=== PATIENT | female | born 1990 | race Caucasian/White ===

== ENCOUNTER → 2021-01-11 01:32 | Outpatient (CLI) | payer BC, SELFPAY ==
[2021-01-11 19:38] LABS: SARS-CoV-2 RNA PCR Negative
== END ==
PROVIDERS: PCP Family Medicine; Visit Provider Nurse Practitioner Family
DX: R05 Cough (principal); Z20.822 Contact with and (suspected) exposure to COVID-19
CPT/HCPCS: C9803; U0003; U0005

== ENCOUNTER 2022-04-30 11:19 | Outpatient (CLI) | payer BC, SELFPAY ==
--- NOTE | 2022-04-30 11:36 | ECG_ITS ---
Measurements Intervals [place] Rate: 84 P: 26 SC: 144 QRS: -4 QRSD: 89 T: 12 QT: 364 QTc: 432 Interpretive Statements SINUS RHYTHM WITH SINUS ARRHYTHMIA LOW QRS VOLTAGE IN PRECORDIAL LEADS BORDERLINE T WAVE ABNORMALITY- INFERIOR LEADS BORDERLINE ECG NO PREVIOUS ECG AVAILABLE FOR COMPARISON Electronically Signed On 04-30-2022 12:10:09 ENVIRONMENTAL RESOURCE SPECIALIST by Silvio Castillo D.O.
[2022-04-30 11:44] LABS: Basophils Absolute Auto 0.1 K/mm3 (0.0-0.1); Basophils Percent Auto 0.4 % (0.2-1.2); Eosinophils Absolute Auto 0.2 K/mm3 (0-0.3); Eosinophils Percent Auto 1.9 % (0-4.4); Hematocrit 41.4 % (37.0-47.0); Hemoglobin 13.4 g/dL (12.0-15.0); Immature Granulocyte Absolute 0.08 K/mm3 (0.00-0.031); Immature Granulocyte Percent A 0.7 % (0-0.5); Lymphocytes Absolute Auto 2.07 K/mm3 (0.9-3.2); Lymphocytes Percent Auto 17.8 % (18.3-44.2); Mean Corpuscular HGB Conc 32.4 g/dl (32-36); Mean Corpuscular Hemoglobin 29.7 pg (26-34); Mean Corpuscular Volume 91.8 fl (80-100); Mean Platelet Volume 10.1 fl (7.4-10.4); Monocytes Absolute Auto 0.8 K/mm3 (0.1-0.6); Monocytes Percent Auto 6.6 % (2.6-8.5); Neutrophils Absolute Auto 8.4 K/mm3 (1.3-6.7); Neutrophils Percent Auto 72.6 % (45.5-73.1); Platelet Count Result 374 k/mm3 (150-375); Red Blood Count 4.51 M/mm3 (4.2-5.4); White Blood Count 11.6 K/mm3 (4.5-10.0)
[2022-04-30 11:53] LABS: Alanine Aminotransferase 53 U/L (6-35); Albumin Level 4.1 g/dL (3.5-5.1); Alkaline Phosphatase 132 U/L (38-126); Anion Gap 4 mmol/L (8-16); Aspartate Amino Transferase 33 U/L (14-36); Bilirubin,Total 0.6 mg/dL (0.2-1.3); Blood Urea Nitrogen 16 mg/dL (7-17); Calcium 8.4 mg/dL (8.4-10.2); Carbon Dioxide 28 mmol/L (22-30); Chloride 102 mmol/L (98-107); Estimated Glomerular Filt Rate > 60; Glucose 98 mg/dL (65-110); Potassium 3.4 mmol/L (3.4-5.0); Sodium 134 mmol/L (137-145)
== END 2022-04-30 11:20 | disposition home or self-care (01) ==
LOC: ANHLAB 11:21
PROVIDERS: PCP Family Medicine; Visit Provider Nurse Practitioner Family
DX: M31.30 Wegener's granulomatosis without renal involvement (principal); Z01.818 Encounter for other preprocedural examination; R94.31 Abnormal electrocardiogram [ECG] [EKG]
CPT/HCPCS: 36415; 80053; 85025; 93005

== ENCOUNTER 2022-06-05 07:52 | Outpatient (CLI) | payer BC, SELFPAY ==
--- NOTE | 2022-06-05 12:11 | WPDSIXMINUTE ---
Six Minute Walk Procedure Procedure Performed Pulmonary Stress Test (6 min walk) Six Minute Walk Six Minute Walk: This 6 minute walk test was carried out with the patient breathing ambient air. The baseline pre walk oxyhemoglobin saturation was 94%. The patient walked 365 m with no stops during testing. During the walk the oxyhemoglobin saturation remained in the range of 93% to 95%. Impression: No evidence of oxyhemoglobin desaturation on this testing.
== END 2022-06-05 07:53 | disposition home or self-care (01) ==
LOC: ANHPFT 07:54
PROVIDERS: PCP Family Medicine; Visit Provider Family Medicine
DX: J39.8 Other specified diseases of upper respiratory tract (principal)
CPT/HCPCS: 94618

== ENCOUNTER 2022-07-01 09:00 | Outpatient (RCR) | payer BC, SELFPAY ==
[2022-07-01 09:58] VITALS: BMI 42.3
[2022-07-01 10:00] VITALS: BMI 42.3
== END 2022-09-16 10:24 | disposition home or self-care (01) ==
LOC: ANHDMC 09:00
PROVIDERS: PCP Family Medicine; Visit Provider Family Medicine
DX: E66.01 Morbid (severe) obesity due to excess calories (principal); J39.8 Other specified diseases of upper respiratory tract; Z68.41 Body mass index [BMI] 40.0-44.9, adult; Z71.3 Dietary counseling and surveillance
CPT/HCPCS: 97802

== ENCOUNTER 2024-01-04 12:29 | Outpatient (CLI) | payer BC, SELFPAY ==
--- NOTE | ~2024-01-04 | CT_ITS ---
EXAMINATION: CTA chest PE protocol DATE: 01/04/2024 13:19 INDICATION: Shortness of breath TECHNIQUE: Computed tomography (CT) pulmonary angiogram of the chest was performed with 100 mL Omnipa que-350 intravenous contrast. Additional 3D reconstructions utilizing coronal maximum intensity proje ction (MIP) were performed. Automated exposure control and iterative reconstruction technique were em ployed. The dose-length product was 873.64 mGy-cm. COMPARISON: 10/18/2027 FINDINGS: No pulmonary embolism. Multiple scattered bands of linear discoid atelectasis throughout both lungs w ith lower lung predominance. There are also widely scattered patchy groundglass opacities throughout both lungs also with lower lung predominance. No smooth septal line thickening to suggest pulmonary e robert. 5 mm pleural-based nodule in the right lower lobe. No pleural effusion or pneumothorax. Heart s ize is normal. No pericardial effusion. Thoracic aorta is normal in caliber with no dissection. No pa thologically enlarged thoracic lymphadenopathy. Small sliding-type hiatal hernia. Chronic appearing m ild T11 and T12 compression fractures with Schmorl's nodes along portions of the superior endplates o f both vertebral bodies as well as along the superior endplate of T9 all of which is new since 018. IMPRESSION: 1. No pulmonary embolism. 2. Patchy groundglass opacities throughout both lungs. Differential would include pneumonia, atelecta sis, pulmonary edema versus less likely eosinophilic pneumonia, hypersensitivity pneumonitis or desqu amative interstitial pneumonia (DIP) pattern chronic interstitial lung disease. Reviewed, dictated and finalized at location B. IMPRESSION: 1. No pulmonary embolism. 2. Patchy groundglass opacities throughout both lungs. Differential would inclu de pneumonia, atelectasis, pulmonary edema versus less likely eosinophilic pneu monia, hypersensitivity pneumonitis or desquamative interstitial pneumonia (DIP ) pattern chronic interstitial lung disease.
--- NOTE | 2024-01-04 13:22 | ECG_ITS ---
Test Date: 2024-01-04 13:36:09 Measurements Intervals [place] Rate: P: [place]: QRS: QRSD: T: QT: QTc: Interpretive Statements SINUS TACHYCARDIA LOW VOLTAGE IN PRECORDIAL LEADS DELAYED PRECORDIAL R/S TRANSITION BASELINE ARTIFACT- III, AVF ABNORMAL ECG Electronically Signed On 01-04-2024 14:53:36 CDT by Silvio Castillo D.O.
== END 2024-01-04 12:30 | disposition home or self-care (01) ==
PROVIDERS: PCP Family Medicine; Visit Provider Family Medicine
DX: R94.31 Abnormal electrocardiogram [ECG] [EKG] (principal); R00.0 Tachycardia, unspecified
CPT/HCPCS: 71275; 93005; Q9967

== ENCOUNTER 2024-09-07 13:04 | Outpatient (CLI) | payer OTHER, SELFPAY ==
--- OUTSIDE RECORDS SUMMARY | 2024-09-07 13:15 | XMS_ITS | Clinical Summary ---
Author Organization [facility] Address [address] [place] [address] Phone Care Team Providers Care Product Lead Name Role Phone David Shea MD Primary Care Provider [phone] Allergies Active Allergy Reactions Criticality Noted Date Comments Nifedipine Hives,Rash Medium 01/23/2018 Prochlorperazine Other (See Comments),Palpitations Medium 12/12/2017 tachycardia Very anxious, felt like I was going to pass out-per patient. Very anxious, felt tlike I was going to pass out-per patient. Prochlorperazine Propensity to adverse reactions to drug Active Other (See Comments) 2018-01-06 00:00:00 tachycardia Medications escitalopram oxalate (LEXAPRO) 10 mg tablet Take 10 mg by mouth daily. Active calcium citrate-vitamin D3 (CITRACAL WITH VIT D) 200 mg calcium -250 unit Tablet Take by mouth. Active cholecalciferol , Vitamin D3, 2,000 unit Tablet Take 4,000 Units by mouth. Active apixaban (ELIQUIS ORAL) Take 5 mg by mouth. Active omeprazole (PriLOSEC) 20 mg Capsule, Delayed Release(E.C.) Take 20 mg by mouth 2 times daily. Patient not sure if this is her dose Active ferrous sulfate 325 mg (65 mg iron) tablet Take 325 mg by mouth daily. Active vitamin B complex (B COMPLEX 1 ORAL) 12/26/2022 Act nash buPROPion HCL (WELLBUTRIN SR) 150 mg Sustained Release 12 hour tablet Take 150 mg by mouth daily. Active ascorbic acid, vitamin C, (VITAMIN C) 250 mg tablet Take 250 mg by mouth daily. Active escitalopram oxalate (LEXAPRO) 10 mg tablet Take 1 Tablet (10 mg) by mouth daily. 90 Tablet 3 05/12/2024 9:04 AM MOBILE THERAPIST 05/26/2023 Active ALPRAZolam (XANAX) 0.25 mg tablet Take 1 Tablet (0.25 mg) by mouth 3 times daily as needed for anxiety 60 Tablet 5 05/27/2023 2:55 PM MOBILE THERAPIST 05/26/2023 Active oxyCODONE (ROXICODONE) 5 mg tablet Take 1 (one) tablet by mouth every 6 hours as needed for Pain 4 Tablet 06/03/2023 9:11 AM MOBILE THERAPIST 06/02/2023 Active azithromycin (ZITHROMAX) 250 mg tablet TAKE 2 TABLETS BY MOUTH ON DAY 1, THEN TAKE 1 TABLET BY MOUTH DAILY ON DAYS 2-5. 6 Tablet 12/11/2023 5:39 PM CDT 12/11/2023 Active omeprazole (PriLOSEC) 40 mg Capsule, Delayed Release(E.C.) Take 1 Capsule (40 mg) by mouth daily. 90 Capsule 3 05/31/2024 3:36 PM MOBILE THERAPIST 05/23/2024 Active buPROPion HCL (WELLBUTRIN XL) 150 mg Extended Release 24 hour tablet Take 1 Tablet (150 mg) by mouth daily in the morning. Take with Lexapro. 30 Tablet 11 07/20/2024 2:51 PM CDT 07/20/2024 Active ALPRAZolam (XANAX) 0.25 mg tablet Take 1 Tablet (0.25 mg) by mouth 3 times daily as needed for anxiety. 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 Hypogammaglobulinemia 03/13/2024 Encounter for preconception consultation 023 Encounters Date Type Department Care Team Description 09/01/2024 9:59 AM CDT - 09/01/2024 11:59 PM CDT Hospital Encounter [facility] [address]nd Fl [address] [place] [address] Anam Salmon MD Infusion Chair 8, 2nd Floor [facility] Discharge Disposition: Home or Self Care 07/27/2024 10:00 AM CDT - 07/27/2024 11:59 PM CDT Hospital Encounter [facility] 2nd Fl [address] [place] [address] Anam Salmon MD Infusion Chair 9, 2nd Floor [facility] Discharge Disposition: Home or Self Care 07/26/2024 External Device Data STL ABSTRACTION Provider, Abstract 07/26/2024 External Device Data STL ABSTRACTION Provider, Abstract 07/05/2024 Orders Only [facility] [address] [place] [address] David Shea MD 07/02/2024 External Device Data STL ABSTRACTION Provider, Abstract 06/15/2024 External Device Data STL ABSTRACTION Provider, Abstract 06/14/2024 External Device Data STL ABSTRACTION Provider, Abstract 06/14/2024 Orders Only [facility] 2nd Fl [address] [place] [address] Anam Salmon MD ANCA-associated vasculitis (CMS/HCC) (Primary Dx) from Last 3 Months Immunizations Immunization Administration Dates Next Due Influenza Seasonal Unspecified Formulation IM Social History Tobacco Use Types Packs/Day Years Used Date Smoking Tobacco: Never Smokeless Tobacco: Never Tobacco Cessation:Counseling Given: Not Answered Alcohol Use Standard Drinks/Week Comments Never 0 (1 standard drink = 0.6 oz pur e alcohol) Feeling Safe Answer Date Recorded Are you in a relationship wi th someone who hurts you emotionally and/or physically? No 07/27/2024 Comments No Sex and Gender Information Value Date Recorded Sex Assigned at Not on file Legal Sex Female 7:24 PM CDT Gender Identity Not on file Sexual Orientation Not on file Last Filed Vital Signs Vital Sign Reading Time Taken Comments Blood Pressure 123/72 09/01/2024 10:02 AM CDT Pulse 92 09/01/2024 10:02 AM CDT Temperature 36.2 C (97.1 F) 07/27/2024 10:10 AM CDT Respiratory Rate 18 07/27/2024 10:1 0 AM CDT Oxygen Saturation 96% 02/12/2024 7:30 PM CDT Inhaled Oxygen Concentration - - Weight 121.9 kg (268 lb 12.8 oz) 2024 10:01 AM CDT Height 167.6 cm (5' 6 ) 02/12/2024 2:16 PM CDT Body Mass Index 43.39 02/12/2024 2:16 PM CDT Plan of Treatment Upcoming Encounters Date Type Department Care Team (Late st Contact Info) Description 10/10/2024 8:15 AM CDT Appointment [facility] [address] [place] [address] Casi Hughes MD [address] [facility] [address] [place] [address] Anam Salmon MD [address], [place] [address] Infusion Chair 11, 2nd Floor [place] 10/19/2024 9:00 AM CDT Appointment [facility] 2nd Fl [address] [place] [address] Infusion Chair 9, 2nd Floor [place] Health Maintenance Due Date Last Done Comments Pre-Diabetes and Diabetes Screening 1990 HEPATITIS B VACCINES (1 of 3 - 19+ 3-dose series) 10/15/2007 HPV/Cotest (21-29) 05/25/2022 05/25/2017 HPV/Cotest (30-65) 05/25/2022 05/25/2017 INFLUENZA VACCINE (#1) 2023 , 02/24/2020, 03/10/2019, Additional history exists DTAP/TDAP/TD VACCINES (2 - Td or Tdap) 12/04/2023 12/03/2013 COVID-19 Vaccine (4 - 2023- season) 2023 06/06/2021, 08/29/2020, 08/08/2020 CERVICAL CANCER SCREENING 01/29/2026 PAP SMEAR 01/29/2026 01/29/2023, 04/27, 05/25/2017, Additional history exists HPV VACCINES Aged Out No longer eligi ble based on patient's age to complete this topic Insurance RX [employer] Member Subscriber Plan / Payer (Ef fective 2024-Present) Name:Myrna Hancock Relation to Subscriber:Self Name:Myrna Hancock Subscriber ID:Not on file Payer ID:Not on file Type:Not on file Address: [address] [employer] Advance Directives For more information, please contact: [phone] * Full Code (Latest Code Status on File) Date Activated Date Inactivated Comments 04/18/2020 7:14 AM 04/18/2020 1:32 PM * Full Code Date Activated Date Inactivated Comments 05/20/2019 3:46 PM 05/20/2019 11:40 PM * Full Code Date Activated Date Inactivated Comments 05/20/2019 1:58 PM 05/20/2019 3:46 PM * Full Code Date Activated Date Inactivated Comments 02/21/2019 2:30 PM 02/21/2019 7:43 PM * Full Code Date Activated Date Inactivated Comments 02/21/2019 10:47 AM 02/21/2019 2:30 PM Care Teams Product Lead Relationship Specialty Start Date End Date David Shea MD [address] [place] [address] PCP - General Family Practice 01/06/18
--- OUTSIDE RECORDS SUMMARY | 2024-09-07 13:16 | XMS_ITS | Encounter Summary ---
Author Organization [facility] Address [address] [place] [address] Care Team Providers Care Conche Loader And Unloader Name Role Phone David Shea MD Primary Care Provider [phone] Samara Whitfield RN Unavailable [phone] Rigo Aden MD Unavailable Henna España MD Unavailable [phone] Encounter Details Date Type Department Care Team (Late st Contact Info) Description 04/14/2019 Ophth Exam [facility] [address] [place] [address] Jamari Velasquez MD [address] [place], [place] [id number] Social History Tobacco Use Types Packs/Day Years Used Date Smoking Tobacco: Never Smokeless Tobacco: Never Alcohol Use Standard Drinks/Week Comments No 0 (1 standard drink = 0.6 oz pur e alcohol) once or twice a year Comments No Sex and Gender Information Value Date Recorded Sex Assigned at Not on file Legal Sex Female 5:19 PM SOFTWARE QUALITY ASSURANCE ENGINEER Gender Identity Not on file Sexual Orientation Not on file documented as of this encounter Functional Status * Is person deaf or have serious hearing difficulty? Answer Date of Assessment Author No 10/01/2018 12:15 PM CDT Noemi Stern RN * Is person blind or have serious difficulty seeing? Answer Date of Assessment Author No 10/01/2018 12:15 PM CDT Noemi Stern RN * Does person have serious difficulty walking/climbing stairs? Answer Date of Assessment Author No 10/01/2018 12:15 PM CDT Noemi Stern RN * Does person have difficulty dressing/bathing? Answer Date of Assessment Author No 10/01/2018 12:15 PM CDT Noemi Stern RN * Does person have difficulty doing errands alone? Answer Date of Assessment Author No 10/01/2018 12:15 PM CDT Noemi Stern RN documented as of this encounter Mental Status * Does person have difficulty concentrating/remembering/making decisions? Answer Entry Date Author No 10/01/2018 12:15 PM CDT Noemi Stern RN documented in this encounter Plan of Treatment Upcoming Encounters Date Type Department Care Team (Late st Contact Info) Description 09/13/2024 10:40 AM CDT Office Visit [facility] - Rheumatology [address] [place] [phone] Anam Salmon MD [address] [place] [address] [place] [address] 01/02/2025 12:00 PM CDT Appointment [facility] [address] [place] [address] 01/02/2025 3:30 PM CDT Office Visit [facility] - Pulmonology [address] [place] [phone] Lonnie Reveles MD [address] [place] [address] documented as of this encounter Visit Diagnoses Not on filedocumented in this encounter Additional Health Concerns Infection Onset Date Last Indicated Resolved Time COVID-19 Under Investigation 09/13/2019 09/13/2019 09/13/2019 10:29 PM CDT COVID-19 Under Investigation 06/10/2022 06/10/2022 06/10/2022 9:19 PM SOFTWARE QUALITY ASSURANCE ENGINEER COVID-19 Confirmed 06/10/2022 06/10/2022 02/25/202 3 4:35 AM SOFTWARE QUALITY ASSURANCE ENGINEER COVID-19 Under Investigation 12/11/2023 12/11/2023 12/11/2023 11:00 PM CDT COVID-19 Confirmed 12/11/2023 12/11/2023 4 4:33 AM CDT documented as of this encounter Care Teams Conche Loader And Unloader Relationship Specialty Start Date End Date David Shea MD PCP - General 04/03/15 Samara Whitfield, RN Continuity Tester 05/07/18 Rigo Aden MD [facility] [place] [address] Rheumatology 10/25/18 Henna España MD [address] [place] [address] [place] [id number] Ophthalmology 03/12/22 documented as of this encounter
--- OUTSIDE RECORDS SUMMARY | 2024-09-07 13:16 | XMS_ITS | Clinical Summary ---
Author Organization [facility] Address [address] [place] [address] Care Team Providers Care Waterworks Operator Name Role Phone David Shea MD Primary Care Provider [phone] Samara Whitfield RN Unavailable Rigo Aden MD Unavailable Henna España MD Unavailable Source Comments [facility],non-owned Affiliates and Associated Physician Practices is amultiple site organization consisting of ambulatory clinics and hospital sitesin [place], [place], [place] and [place]. This disclosure is being madepursuant to the Care Everywhere program and may not contain all information available regarding this patient. Last updated 18.[facility] Allergies Active Allergy Reactions Criticality Noted Date Comments Prochlorperazine Psychiatric Medium 12/12/2017 Very anxious, felt like I was going to pass out-per patient. Nifedipine Rash Medium 01/23/2018 Medications * Be aware that medications may not be up to date on this document. Alwaysverify current medications with the patient. Calcium Carb-Cholecalci ferol (CALCIUM 500 + D PO) 500 mg Active ALPRAZolam (Xanax) 0.25 MG tablet Take 1 (one) tablet by mouth every 8 hours as needed for Insomnia 12/24/2023 Active buPROPion XL 24hr (Wellbutrin-XL) 150 MG tablet TAKE ONE TABLET BY MOUTH ONCE DAILY 30 tablet 12/16/2023 12/16/19 25 Active escitalopram (Lexapro) 10 MG tablet TAKE ONE TABLET BY MOUTH ONCE DAILY 30 tablet 12/16/2023 12/16/19 25 Active magnesium glycinate tablet Take 5 (five) tablets by mouth once daily 03/06/2023 Active MV-Min-Fe Fum-FA-DHA (/FOLIC ACID+DHA PO) Take 1 tablet by mouth once daily 08/26/2023 Active Cyanocobalamin (B-12) 1000 MCG Take 1 tablet by mouth once daily Active Cholecalciferol (Vitamin D3) 125 MCG (5000 UT) Take 1 tablet by mouth once daily Active omeprazole (PriLOSEC) 40 MG capsule Take 1 (one) capsule by mouth once daily 90 capsule 3 05/23/2024 Active Active Problems Problem Noted Date Diagnosed Date Acute hypoxic respiratory failure 12/13/2023 COVID 12/12/2023 Dacryocystitis of left lacrimal sac 03/15/2022 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 05/15/2021 Granulomatosis with polyangiitis 05/09/2018 Stridor 05/06/2018 SOB (shortness of breath) 05/06/2018 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 Foot pain, right 01/31/2018 Shortness of breath 01/13/2018 Acute septic pulmonary embolism with acute cor p ulmonale 01/13/2018 Acute recurrent maxillary sinusitis 12/09/2017 Immunosuppression 11/27/2017 Pulmonary nodules/lesions, multiple 11/27/2017 Vasculitis 11/17/2017 Encounter for therapeutic drug level monitoring 07/11/2015 Scleritis of left eye 05/31/2015 Arteritis 05/31/2015 Hoarseness Pulmonary infiltrate Consolidation of right upper lobe Right hand pain Right foot pain 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 Leucopenia Resolved Problems Problem Noted Date Diagnosed Date Resolved Date Necrotic toes 03/27/2018 04/12/2019 History of pulmonary embolism 03/15/2018 04/12/2019 Encounter for central line placement 01/16/2018 04/12/2019 Pneumonia due to infectious organism 11/27/2017 04/12/2019 H/O: pneumonia 11/24/2017 04/12/2019 Postcoital and contact bleeding 06/03/2017 04/12/2019 Sepsis 04/12/2019 Encounters Date Type Department Care Team Description 08/12/2024 Telephone [facility] - Rheumatology [address] [place] [phone] Anam Salmon MD LABS ONLY 06/27/2024 4:00 PM 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 Office Visit [facility] - Pulmonology [address] [place] [phone] Lonnie Reveles MD Granulomatosis with polyangiitis, unspecified whether renal involvement (Primary Dx); Orbital granulomatosis with polyangiitis (GPA); Tracheal stenosis; Dyspnea, unspecified type; Abnormal CT of the chest 06/27/2024 Travel 06/14/2024 10:29 AM 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 - 06/14/2024 11:59 PM 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 Hospital Encounter [facility] OP DRAW STATION [address] [place] [address] Discharge Disposition: Home or Self Care 06/14/2024 10:00 AM 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 Office Visit [facility] - Rheumatology [address] [place] [phone] Anam Salmon MD ANCA-associated vasculitis (Primary Dx); History of DVT (deep vein thrombosis); Therapeutic drug monitoring; Immunosuppression due to drug therapy ([facility]) ; Long-term current use of rituximab; Medication exposure during first trimester of ; Hypogammaglobulinemia 06/14/2024 Travel from Last 3 Months Immunizations Immunization Administration Dates Next Due INFLUENZA VACCINE, TRIV. (AF LURIA, FLUZONE TRIVALENT; 6MO+) (IIV3) 02/23/2019 Covid ClassifEye primary monoval ent 12+ yr 0.3mL Purple cap 06/06/2021,08/29/2020,08/08/2020 FLU VACCINE TRI IIV3 SPLIT PF IM (FLUVIRIN) 12/27 INFLUENZA VACCINE 01/19/2023,01/31/2019 INFLUENZA VACCINE, CELL CULT URE, QUADR. (FLUCELVAX QUADRIVALENT; 6MO+) (CCIIV4) 03/10/2019 INFLUENZA VACCINE, QUADR. (F LUZONE; FLULAVAL; FLUARIX; AFLURIA QUADRIVALENT; 6MO+), 0.5 ML (IIV4) 01/19/2023,02/24/2020 Pneumococcal Pcv13 Conj 03/31/2019 TDAP (7yrs+) 12/03/2013 Family History Medical History Relation Name Comments None Known Brother Lupus Cousin None Known Father Cancer - Breast Maternal Aunt Cancer - Breast Maternal Grandmother None Known Mother Cancer - Lung Paternal Grandfather Relation Name Status Comments Brother Alive Cousin Alive Father Alive Maternal Aunt Maternal Grandmother Mother Alive Paternal Grandfather Social History Tobacco Use Types Packs/Day Years Used Date Smoking Tobacco: Never Smokeless Tobacco: Never Tobacco Cessation:Counseling Given: Not Answered Alcohol Use Standard Drinks/Week Comments No 0 (1 standard drink = 0.6 oz pur e alcohol) AUDIT-C Answer Date Recorded Q1: How often do you have a drink containing alcohol? Never 12/11/2023 Q2: How many drinks containi ng alcohol do you have on a typical day when you are drinking? Patient does not drink Q3: How often do you have si x or more drinks on one occasion? Never 12/11/2023 Overall Financial Resource Strain (CARDIA) Answe r Date Recorded How hard is it for you to pa y for the very basics like food, housing, medical care, and heating? Not hard at all 12/12/2023 PHQ-2 Answer Date Recorded Patient Health Questionnaire-2 Score 0 06/14/2024 [facility] - Occupational Stress Questionnaire Answer Date Recorded Do you feel stress - tense, restless, nervous, or anxious, or unable to sleep at night because your mind is troubled all the time - these days? Rather much 12/12/2023 Hunger Vital Sign Answer Date Recorded Within the past 12 months, y ou worried that your food would run out before you got the money to buy more. Never true 12/12/19 24 Within the past 12 months, t he food you bought just didn't last and you didn't have money to get more. Never true 12/12/2023 PRAPARE - Transportation Answer Date Re corded In the past 12 months, has l ack of transportation kept you from medical appointments or from getting medications? No 11/25 In the past 12 months, has l ack of transportation kept you from meetings, work, or from getting things needed for daily living? No 12/12/2023 Housing Stability Vital Sign Answer Stanley e Recorded In the last 12 months, was t here a time when you were not able to pay the mortgage or rent on time? No 12/12/2023 In the last 12 months, how many places have you lived? 1 12/12/2023 In the last 12 months, was t here a time when you did not have a steady place to sleep or slept in a longterm (including now)? No 12/12/2023 Comments No Sex and Gender Information Value Date Recorded Sex Assigned at Not on file Legal Sex Female 5:19 PM 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 Gender Identity Not on file Sexual Orientation Not on file Last Filed Vital Signs Vital Sign Reading Time Taken Comments Blood Pressure 109/78 06/27/2024 3:43 PM 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 Pulse 102 06/27/2024 3:43 PM 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 Temperature 36.8 C (98.2 F) 06/14/2024 10:07 AM 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 Respiratory Rate 17 06/27/2024 3:43 PM 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 Oxygen Saturation 98% 06/27/2024 3:43 PM 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 Inhaled Oxygen Concentration 21% 12/12/2023 4 :00 AM CDT Weight 119.2 kg (262 lb 12.8 oz) 06/27/2024 3:43 PM 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 Height 167.6 cm (5' 6 ) 06/27/2024 3:43 PM 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 Body Mass Index 42.42 06/27/2024 3:43 PM 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 Plan of Treatment Upcoming Encounters Date Type Department Care Team (Late st Contact Info) Description 09/13/2024 10:40 AM CDT Office Visit [facility] - Rheumatology [address] [place] [address], [place] [address] Anam Salmon MD [address] [place] [address] [place] [address] 01/02/2025 12:00 PM CDT Appointment [facility] PFT [address] [place] [phone] 01/02/2025 3:30 PM CDT Office Visit [facility] - Pulmonology [address] [place], [place] [address], [place] [address] Lonnie Reveles MD [address] [place] [address] Health Maintenance Due Date Last Done Comments HEPATITIS B VACCINE (1 of 3 - 19+ 3-dose series) 10/15/2007 ZOSTER VACCINE (1 of 2) 10/15/2007 PNEUMOCOCCAL VACCINE (2 of 2 - PPSV23) 05/26/2019 03/31/2019 DTAP/TDAP/TD VACCINES (2 - Td or Tdap) 12/04/2023 12/03/2013 COVID-19 VACCINE ( season) 2023 06/06/2021, 06/06/2021, 08/29/2020, Additional history exists INFLUENZA VACCINE (Season Ended) 2024 01/19/2023, 01/19/2023, 02/24/2020, Additional history exists PAP SMEAR 01/29/2026 01/29/2023 HIV SCREENING Completed 12/09/2017 HEPATITIS C SCREENING Completed 01/19/2023 , 04/04/2020, 12/09/2017, Additional history exists DEPRESSION SCREENING Completed 06/14/2024, 05/04/2023, 06/02/2022, Additional history exists HIB VACCINE Aged Out No longer eligi ble based on patient's age to complete this topic HPV VACCINE Aged Out No longer eligi ble based on patient's age to complete this topic MENINGOCOCCAL (Group B) VACCINE SHARED DECISION-MAKING Aged Out No longer eligible based on patient's age to complete this topic MENINGOCOCCAL GROUPS A/C/Y/W VACCINE Aged Out No longer eligible based on patient's age to complete this topic Medical Devices Implanted Type Area Line Construction Superintendent Device Identifier Shelf Expiration Date Model / Serial / Lot Set Intbt .016in .025in Crwfrd Nose - [id number] Implanted:Qty: 1 on 05/05/2022 by Henna España MD at [facility] [employer] 12/25/2025 [id number] / [id number] / [id number] Procedures Procedure Name Priority Date/Time Associated Diagnosis Comments PROTEIN CREATININE RATIO URINE RANDOM PNL Routine 06/14/2024 11:55 AM 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 ANCA-associated vasculitis URINALYSIS W/MICROSCOPIC REFLEX TO CULTURE Routine 06/14/2024 11:55 AM 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 ANCA-associated vasculitis FLOW CYTOMETRY RITUXAN BLOOD Routine 06/14/2024 11:23 AM 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 ANCA-associated vasculitis COMPREHENSIVE METABOLIC PANEL Routine 06/14/2024 11:23 AM 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 ANCA-associated vasculitis CBC W AUTO DIFFERENTIAL Routine 06/14/19 11:23 AM 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 ANCA-associated vasculitis NEUTROPHIL CYTOPLASMIC ANTIBODY Routine 06/14/2024 11:23 AM 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 ANCA-associated vasculitis MPO/KS 3 AUTOANTIBODIES PANEL Routine 06/14/2024 11:23 AM 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 ANCA-associated vasculitis IMMUNOGLOBULINS IGG/IGM/IGA PANEL Routine 06/14/2024 11:23 AM 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 ANCA-associated vasculitis HEPATITIS C AB SCREEN RFLX NAAT QUANT Routine 01/19/2023 10:43 AM CDT Need for hepatitis C screening test HIV-1 HIV-2 ANTIGEN/ANTIBODY STAT 12/09/2017 4:51 PM CDT from Last 3 Months or Most Recently Relevant to Health Maintenance Results * (ABNORMAL) URINALYSIS W/MICROSCOPIC REFLEX TO CULTURE (06/14/2024 11:55 AM 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) Color UA Yellow Straw, Yellow 06/14/2024 12:19 PM 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 [facility] Clarity UA Slt Cloudy(A) Clear 06/14/2024 12:19 PM [facility] Specific [place] UA 1.023 1.005 - 1.030 06/14/2024 12:19 PM [facility] pH UA 6.0 5.0 - 8.0 pH 06/14/2024 12:19 PM [facility] Protein UA Negative Negative 06/14/2024 12:19 PM [facility] Glucose UA Negative Negative 06/14/2024 12:19 PM [facility] Ketone UA Negative Negative 06/14/2024 12:19 PM [facility] Bilirubin UA Negative Negative 06/14/2024 12:19 PM [facility] Blood UA Negative Negative 06/14/2024 12:19 PM [facility] Nitrite UA Negative Negative 06/14/2024 12:19 PM [facility] Leukocyte Esterase Negative Negative 06/14/2024 12:19 PM [facility] Urobilinogen UA Negative Negative mg/dL 06/14/2024 12:19 PM [facility] RBC UA 0-2 None Seen, 0-2, 3-5 /HPF 06/14/2024 12:19 PM [facility] WBC UA 0-5 None Seen, 0-5 /HPF 06/14/2024 12:19 PM [facility] Squamous Epithelial Cells UA 3-5 None Seen, 0-2, 3-5 /HPF 06/14/2024 12:19 PM [facility] Mucus UA 1+ /LPF 06/14/2024 12:19 PM [facility] Urine URINE SPECIMEN OBTAINED BY CLEAN CATCH PROCEDURE / Unknown Collection / Unknown 06/14/2024 11:55 AM [facility] 06/14/2024 12:12 PM [facility] - 06/14/2024 12:19 PM [facility] Culture Not Indicated Anam Salmon MD LAB - URINALYSIS ORDERABLES F inal Result Performing Organization Address City/State/[facility] Co de Phone Number [facility] [address] [place] [phone], [place] [phone] * PROTEIN CREATININE RATIO URINE RANDOM PNL (06/14/2024 11:55 AM 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) Protein Urine 14 Not Established mg/dL 06/14/2024 12:51 PM [facility] Creatinine Urine 168.67 Not Established mg/dL 06/14/2024 12:51 PM [facility] Protein/Creati nine Ratio Urine 0.08 <0.10 06/14/2024 12:51 PM [facility] Urine URINE SPECIMEN OBTAINED BY CLEAN CATCH PROCEDURE / Unknown Collection / Unknown 06/14/2024 11:55 AM 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 06/14/2024 12:12 PM 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 Anam Salmon MD LAB - URINE CHEMISTRY ORDERAB LES Final Result [facility] [address] [place] [address], [place] [phone] * FLOW CYTOMETRY RITUXAN BLOOD (06/14/2024 11:23 AM 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) Reason for test ANCA-associated vasculitis (HCC) 447.8 06/14/2024 3:43 PM [facility] Client Specimen ID # [id number] 06/14/2024 3:43 PM [facility] Number of Markers 7 06/14/2024 3:43 PM [facility] Flow Cytometry Results Differential Result Comment WBC Count /uL 11,400 % Lymphocytes 18 Lymphocyte Count u/L 2,052 Cell Region A: Lymphocytes Surface Marker Results % Absolute Count (cells/uL) CD3 95 1,949 CD3+CD4+ 56 1,149 CD3+CD8+ 36 739 CD4:CD8 Ratio 1.56 CD19 0 0 CD20 0 0 CD45 100 2,052 CD56 4 82 06/14/2024 3:43 PM [facility] Flow Cytometry Interpretation Testing is technical only and does not require an interpretation of results. 06/14/2024 3:43 PM [facility] Reference Range Adult Normal Reference Range Adult (> 18 years) CD3 54-84 % CD4 33-63 % CD8 12-39 % CD19 5-19 % CD56 6-26 % CD4+CD45RA+ 30-50 % CD4+CD45RO+ 17-42 % CD19+CD27+ 7-48 % CD19+CD27+IgD+ 7-29 % CD19+CD27+IgD- 3-23 % CD19+BJ91-FeT+ 29-93 % % 06/14/2024 3:43 PM [facility] Disclaimer Test performed at [facility], [address] [place], [place], [address]. This test was developed and its performance characteristics determined by the Flow Cytometry Laboratory. It has not been cleared by the [place] Food and Drug Administration (FDA). The FDA has determined that such clearance or approval is not necessary. This test is used for clinical purposes. It should not be regarded as investigational or for research. This laboratory is regulated under the Clinical Laboratory Improvement Amendments of 1998 (CLIA) as a qualified to perform high complexity clinical testing. By law [place], CD4 lymphocyte counts on patients with HIV infection must be reported by the physician to the [facility] authority. 06/14/2024 3:43 PM 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 [facility] Embedded Images 3:43 PM 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 [facility] Blood BLOOD SPECIMEN / Unknown Lab Venipuncture / Unknown 06/14/2024 11:23 AM 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 06/14/2024 12:14 PM 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 Anam Salmon MD LAB - PATHOLOGY/CYTOLOGY LAKISHA MCINTYRE Final Result [facility] [address] [facility] [phone] * NEUTROPHIL CYTOPLASMIC ANTIBODY (06/14/2024 11:23 AM 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) Cytoplasmic (C-ANCA) <1:20 Neg:<1:20 titer 06/15/2024 3:09 PM 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 [facility] ([facility]) p-ANCA Titer <1:20 Neg:<1:20 titer 06/15/2024 3:09 PM 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 [facility] ([facility]) Comment: The presence of positive fluorescence exhibiting P-ANCA or C-ANCA patterns alone is not specific for the diagnosis of Bandar's Granulomatosis (WG) or microscopic polyangiitis. Decisions about treatment should not be based solely on ANCA IFA results. The International ANCA Group Consensus recommends follow up testing of positive sera with both KS-3 and MPO-ANCA enzyme immunoassays. As many as 5% serum samples are positive only by EIA. Ref. AM J Clin Pathol 1999;111:507-513. Atypical p-ANCA Titer <1:20 Neg:<1:20 titer 06/15/2024 3:09 PM 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 [facility] ([facility]) Comment: The atypical pANCA pattern has been observed in a significant percentage of patients with ulcerative colitis, primary sclerosing cholangitis and autoimmune hepatitis. Blood BLOOD SPECIMEN / Unknown Lab Venipuncture / Unknown 06/14/2024 11:23 AM 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 06/14/2024 12:10 PM 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 Narrative [facility] ([facility]) - 06/15/2024 3:09 PM 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 Performed at: [facility] [address] [place], [place] [id number] Ream Cutter: Everardo Concepcion PhD, Phone: [phone] Anam Salmon MD LAB - CHEMISTRY ORDERABLES Fi nal Result [facility]) [address] [place] [address], [place] * MPO/KS 3 AUTOANTIBODIES PANEL (06/14/2024 11:23 AM 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) Serine Proteinase 3 IgG 2 0 - 19 AU/mL 06/17/2024 7:09 AM 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 [employer] ([facility]) Comment: INTERPRETIVE INFORMATION: Serine Proteinase 3, IgG 19 AU/mL or Less ........ Negative 20-25 AU/mL ............. Equivocal 26 AU/mL or Greater ..... Positive Approximately 85% of patients with a C-ANCA pattern by IFA have antibodies specific for PR3. Performed By: [facility] [address] [place] [address] Tier Over: Carlos Enrique Cruz MD, PhD CLIA Number: [id number] Myeloperoxidase Antibody 0 0 - 19 AU/mL 06/17/2024 7:09 AM 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 [employer] ([facility]) Comment: INTERPRETIVE INFORMATION: Myeloperoxidase Abs, IgG 19 AU/mL or Less ......... Negative 20-25 AU/mL .............. Equivocal 26 AU/mL or Greater ...... Positive Approximately 90% of patients with a P-ANCA pattern by IFA have antibodies specific for MPO. Blood BLOOD SPECIMEN / Unknown Lab Venipuncture / Unknown 06/14/2024 11:23 AM 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 06/14/2024 12:10 PM 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 Anam Salmon MD LAB - CHEMISTRY ORDERABLES Fi nal Result [facility]) [address] [place] [address] * (ABNORMAL) CBC WITH DIFFERENTIAL (06/14/2024 11:23 AM [facility]) WBC 11.4(H) 4.0 - 10.7 x10E9/L 06/14/2024 12:25 PM [facility] RBC Count 4.63 3.90 - 5.20 x10E12/L 06/14/2024 12:25 PM [facility] Hemoglobin 13.3 11.9 - 15.8 g/dL 06/14/2024 12:25 PM [facility] Hematocrit 40.7 34.8 - 46.1 % 06/14/2024 12:25 PM [facility] MCV 87.9 80.0 - 98.0 fL 06/14/2024 12:25 PM [facility] MCH 28.7 26.7 - 33.6 pg 06/14/2024 12:25 PM [facility] MCHC 32.7 31.7 - 36.3 g/dL 06/14/2024 12:25 PM [facility] RDW-CV 14.0 11.3 - 14.8 % 06/14/2024 12:25 PM [facility] Platelet Count 397 150 - 420 x10E9/L 06/14/2024 12:25 PM [facility] MPV 10.5 7.8 - 11.4 fL 06/14/2024 12:25 PM [facility] Neutrophil % 69.4 41.0 - 74.0 % 06/14/2024 12:25 PM [facility] Lymphocyte % 20.8 17.0 - 47.0 % 06/14/2024 12:25 PM [facility] Monocyte % 6.3 3.0 - 11.0 % 06/14/2024 12:25 PM [facility] Eosinophil % 2.7 0.0 - 7.0 % 06/14/2024 12:25 PM [facility] Basophil % 0.4 0.0 - 1.6 % 06/14/2024 12:25 PM [facility] Immature Granulocytes % 0.4 0.0 - 1.0 % 06/14/2024 12:25 PM [facility] Neutrophil Absolute 7.91(H) 1.60 - 7.50 x10E9/L 06/14/2024 12:25 PM [facility] Lymphocyte Absolute 2.37 1.00 - 4.40 x10E9/L 06/14/2024 12:25 PM [facility] Monocyte Absolute 0.72 0.15 - 1.00 x10E9/L 06/14/2024 12:25 PM [facility] Eosinophil Absolute 0.31 0.00 - 0.60 x10E9/L 06/14/2024 12:25 PM [facility] Basophil Absolute 0.05 0.00 - 0.13 x10E9/L 06/14/2024 12:25 PM [facility] Blood BLOOD SPECIMEN / Unknown Lab Venipuncture / Unknown 06/14/2024 11:23 AM [facility] 06/14/2024 12:15 PM [facility] us Anam Salmon MD LAB - HEMATOLOGY ORDERABLES F inal Result Performing Organization Address [address] [facility]/State/[facility] Co de Phone Number [address] [phone] [phone] * COMPREHENSIVE METABOLIC PANEL (06/14/2024 11:23 AM [facility]) BUN 15 7 - 26 mg/dL 06/14/2024 12:41 PM [facility] Creatinine 0.79 0.56 - 0.96 mg/dL 06/14/2024 12:41 PM [facility] Sodium 140 136 - 145 mmol/L 06/14/2024 12:41 PM [facility] Potassium 3.9 3.5 - 4.5 mmol/L 06/14/2024 12:41 PM [facility] Chloride 104 98 - 107 mmol/L 06/14/2024 12:41 PM [facility] CO2 26 22 - 29 mmol/L 06/14/2024 12:41 PM [facility] Glucose 86 70 - 99 mg/dL 06/14/2024 12:41 PM [facility] Calcium 9.0 8.4 - 10.2 mg/dL 06/14/2024 12:41 PM [facility] Protein Total 6.5 6.0 - 8.3 g/dL 06/14/2024 12:41 PM [facility] Albumin 3.9 3.4 - 5.0 g/dL 06/14/2024 12:41 PM [facility] Bilirubin Total 0.5 0.2 - 1.2 mg/dL 06/14/2024 12:41 PM [facility] Alkaline Phosphatase 134 40 - 150 U/L 06/14/2024 12:41 PM [facility] ALT 23 5 - 55 U/L 06/14/2024 12:41 PM [facility] AST 17 5 - 34 U/L 06/14/2024 12:41 PM [facility] Anion Gap 10 6 - 16 06/14/2024 12:41 PM [facility] BUN/Creatinine Ratio 19 7 - 23 06/14/2024 12:41 PM [facility] Osmolality Calculated 290 275 - 295 mOsm/kg 06/14/2024 12:41 PM [facility] Albumin/Globulin Ratio 1.5 1.1 - 2.3 06/14/2024 12:41 PM [facility] eGFR by CKD-EPI >90 >=90 mL/min/1.7 3 m2 06/14/2024 12:41 PM [facility] Blood BLOOD SPECIMEN / Unknown Lab Venipuncture / Unknown 06/14/2024 11:23 AM [facility] 06/14/2024 12:15 PM [facility] us Anam Salmon MD LAB - CHEMISTRY ORDERABLES Fi nal Result [facility] [address] [place] [phone], [place] [phone] * (ABNORMAL) IMMUNOGLOBULINS IGG/IGM/IGA PANEL (06/14/2024 11:23 AM 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) IgG 540(L) 767 - 1,590 mg/dL 06/14/2024 1:07 PM [facility] IgM 8(L) 37 - 286 mg/dL 06/14/2024 1:07 PM [facility] IgA 73 61 - 356 mg/dL 06/14/2024 1:07 PM [facility] Blood BLOOD SPECIMEN / Unknown Lab Venipuncture / Unknown 06/14/2024 11:23 AM 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 06/14/2024 12:10 PM 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 Anam Salmon MD LAB - CHEMISTRY ORDERABLES Fi nal Result [facility] [address] [place] [address], RUST [phone] * HEPATITIS C AB SCREEN RFLX NAAT QUANT (01/19/2023 10:43 AM CDT) Pathologist [facility] Hepatitis C Antibody Non-react nash Non-reac tive 01/19/2023 12:36 PM CDT [facility] Comment:Hepatitis C Antibody screen indicates no serologic evidence of past or current infection with Hepatitis C Virus. Patients with unexplained liver disease who are immunocompromised or suspected of having acute Hepatitis C infection may benefit from Nucleic Acid Test (DEVIKA) for Hepatitis C Viral RNA to confirm Hepatitis C status. Blood BLOOD SPECIMEN / Unknown Lab Venipuncture / Unknown 01/19/2023 10:43 AM CDT 01/19/2023 11:10 AM CDT Anam Salmon MD LAB - CHEMISTRY ORDERABLES Fi nal Result [id number]|2024-09-07 13:16:00|2024-09-07 13:16:00|XMS_ITS|JR RAMIREZ|External Medical Summaries|[id number]|" Encounter Summary Created on: September 07, 2024 Myrna Hancock : 1990 Sex: Female Author Organization [facility] Address [address] [facility] [place] [address] Care Team Providers Care Waterworks Operator Name Role Phone David Shea MD Primary Care Provider Samara Whitfield RN Unavailable Rigo Aden MD Unavailable Henna España MD Unavailable Encounter Details Date Type Department Care Team (Late st Contact Info) Description 02/16/2020 Telephone [facility] [address] [place] [address] Anam Salmon MD [address] [phone] Social History Tobacco Use Types Packs/Day Years Used Date Smoking Tobacco: Never Smokeless Tobacco: Never Alcohol Use Standard Drinks/Week Comments No 0 (1 standard drink = 0.6 oz pur e alcohol) once or twice a year Comments No Sex and Gender Information Value Date Recorded Sex Assigned at Not on file Legal Sex Female 5:19 PM 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 Gender Identity Not on file Sexual Orientation Not on file COVID-19 Exposure Response Date Recorded In the last month, have you been in contact with someone who was confirmed or suspected to have Coronavirus / COVID-19? No / Unsure 01/23/2020 3:56 PM CDT documented as of this encounter Functional Status [...] Noemi Stern RN documented in this encounter Miscellaneous Notes * Telephone Encounter - Nelly Sprague - 02/16/2020 11:24 AM CDT Current Provider name: Dr. Haylee Salmon (New To Doctor) Reason for call: Ms. Myrna Hancock normally has new bloodwork done for appt. Her prior ordershave . Please have new orders sent/faxed to [facility]. Make sure they are sent, I have been having challenges with pt. Arriving at [facility] and they weren't able to see their orders. Thanks. Patient Call Back number: [phone] documented in this encounter Plan of Treatment Upcoming Encounters Date Type Department Care Team (Late st Contact Info) Description 09/13/2024 10:40 AM CDT Office Visit [facility] - Rheumatology [address] [place] [address], [place] [phone] Anam Salmon MD [address] [place] [address] [place] [phone] 01/02/2025 12:00 PM CDT Appointment [facility] [address] [place] [phone] 01/02/2025 3:30 PM CDT Office Visit [facility] - Pulmonology [address] [facility], [place] [phone] Lonnie Reveles MD [address] [place] [address] documented as of this encounter Visit Diagnoses Not on filedocumented in this encounter Additional Health Concerns Infection Onset Date Last Indicated Resolved Time COVID-19 Under Investigation 06/10/2022 06/10/2022 06/10/2022 9:19 PM 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 COVID-19 Confirmed 06/10/2022 06/10/2022 3 4:35 AM 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 COVID-19 Under Investigation 12/11/2023 12/11/2023 12/11/2023 11:00 PM CDT COVID-19 Confirmed 12/11/2023 12/11/2023 4 4:33 AM CDT documented as of this encounter Care Teams Waterworks Operator Relationship Specialty Start Date End Date David Shea MD PCP - General 04/03/15 Samara Whitfield, RN Direct Care Worker 05/07/18 Rigo Aden MD [address] [place] [phone] Rheumatology 10/25/18 Henna España MD [address] [place] [address] [place] [phone] Ophthalmology 03/12/22 documented as of this encounter "
--- OUTSIDE RECORDS SUMMARY | 2024-09-07 13:16 | XMS_ITS | Encounter Summary ---
Author Organization [facility] Address [address] [place] [address] Care Team Providers Care Application Security Architect Name Role Phone David Shea MD Primary Care Provider [phone] Samara Whitfield RN Unavailable Rigo Aden MD Unavailable Henna España MD Unavailable Reason for Visit * Reason Onset Date Comments MEDICATION REFILL 02/13/2021 Encounter Details Date Type Department Care Team (Late st Contact Info) Description 02/13/2021 Refill [facility] - General Surgery [address] [facility] 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 Answer Date of Assessment Author No 10/19/2020 5:16 PM CDT Nichole Lopez RN * Is person blind or have serious difficulty seeing? Answer Date of Assessment Author No 10/19/2020 5:16 PM CDT Nichole Lopez RN * Does person have serious difficulty walking/climbing stairs? Answer Date of Assessment Author No 10/19/2020 5:16 PM CDT Nichole Lopez RN * Does person have difficulty dressing/bathing? Answer Date of Assessment Author No 10/19/2020 5:16 PM GERMANIAT Nichole Lopez RN * Does person have difficulty doing errands alone? Answer Date of Assessment Author No 10/19/2020 5:16 PM CDT Nichole Lopez RN documented as of this encounter Mental Status * Does person have difficulty concentrating/remembering/making decisions? Answer Entry Date Author No 10/19/2020 5:16 PM CDT Nichole Lopez RN documented in this encounter Plan of Treatment Upcoming Encounters Date Type Department Care Team (Late st Contact Info) Description 09/13/2024 10:40 AM CDT Office Visit [facility] - Rheumatology [address] [place] [address] Anam Salmon MD [address] [place] [address] [place] [address] 01/02/2025 12:00 PM CDT Appointment [facility] [address] [place] [address] 01/02/2025 3:30 PM CDT [facility] [address] [place] [address] Lonnie Reveles MD [address] [place] [address] documented as of this encounter Visit Diagnoses Not on filedocumented in this encounter Additional Health Concerns Infection Onset Date Last Indicated Resolved Time COVID-19 Under Investigation 06/10/2022 06/10/2022 06/10/2022 9:19 PM FIELD CROPS HARVEST MACHINE OPERATOR COVID-19 Confirmed 06/10/2022 06/10/2022 02/25/202 3 4:35 AM FIELD CROPS HARVEST MACHINE OPERATOR COVID-19 Under Investigation 12/11/2023 12/11/2023 12/11/2023 11:00 PM CDT COVID-19 Confirmed 12/11/2023 12/11/2023 4 4:33 AM CDT documented as of this encounter Care Teams Application Security Architect Relationship Specialty Start Date End Date David Shea MD PCP - General 04/03/15 Samara Whitfield, RN Explosive Operator Grenade 05/07/18 Rigo Aden MD [address] [place] [address] Rheumatology 10/25/18 Henna España MD [address] [place] [address] DEPT [place] [phone] Ophthalmology 03/12/22 documented as of this encounter
--- OUTSIDE RECORDS SUMMARY | 2024-09-07 13:16 | XMS_ITS | Encounter Summary ---
Author Organization [facility] Address [address] [facility] [place] [address] Care Team Providers Care Stonecutter Hand Name Role Phone David Shea MD Primary Care Provider [phone] Samara Whitfield RN Unavailable Rigo Aden MD Unavailable Henna España MD Unavailable Encounter Details Date Type Department Care Team (Late st Contact Info) Description 11/15/2018 Telephone [facility] [address] [address] Jeet Allan MD [address] [facility] [address] [place] [address] Social History Tobacco Use Types Packs/Day Years Used Date Smoking Tobacco: Never Smokeless Tobacco: Never Alcohol Use Standard Drinks/Week Comments No 0 (1 standard drink = 0.6 oz pur e alcohol) Comments No Sex and Gender Information Value Date Recorded Sex Assigned at Not on file 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 Allan in 4 weeks? Thank you marck documented in this encounter Plan of Treatment Upcoming Encounters Date Type Department Care Team (Late st Contact Info) Description 09/13/2024 10:40 AM CDT Office Visit [facility] - Rheumatology [address] [place] [phone] Anam Salmon MD [address] [place] [address] [place] [address] 01/02/2025 12:00 PM CDT Appointment [facility] [address] [place] [address] 01/02/2025 3:30 PM CDT Office Visit [facility] - Pulmonology [address] [place] [phone] Lonnie Reveles MD [address] [place] [address] documented as of this encounter Visit Diagnoses Not on filedocumented in this encounter Additional Health Concerns Infection Onset Date Last Indicated Resolved Time COVID-19 Under Investigation 09/13/2019 09/13/2019 09/13/2019 10:29 PM CDT COVID-19 Under Investigation 06/10/2022 06/10/2022 06/10/2022 9:19 PM MEDICAL SOCIAL WORKER COVID-19 Confirmed 06/10/2022 06/10/2022 3 4:35 AM MEDICAL SOCIAL WORKER COVID-19 Under Investigation 12/11/2023 12/11/2023 12/11/2023 11:00 PM CDT COVID-19 Confirmed 12/11/2023 12/11/2023 4 4:33 AM CDT documented as of this encounter Care Teams Stonecutter Hand Relationship Specialty Start Date End Date David Shea MD PCP - General 04/03/15 Samara Whitfield, RN Cake Cutter Machine 05/07/18 Rigo Aden MD [address] [place] [phone] Rheumatology 10/25/18 Henna España MD [facility] [facility] [place] [address] Ophthalmology 03/12/22 documented as of this encounter
--- OUTSIDE RECORDS SUMMARY | 2024-09-07 13:16 | XMS_ITS | Data Portability ---
Author Organization [facility] Address [address] [place] [address] Care Team Providers Care Senior Environmental Consultant Name Role Phone DAVID LUNA Primary Care Provider Assessment Encounter Date Assessment Date Assessment LastModified by Organization Details LastModified Time 01/29/2023 01/29/2023 Annual gynecological exam performed. Patient will come back in a year unless there are new symptoms. [email or web address] Not available 01/29/2023 11:35:52 02/22/2024 02/22/2024 Annual gynecological exam performed. Patient will come back in a year unless there are new symptoms. [email or web address] Not available 02/04/2024 11:38:59 Plan of Treatment Reminders Order Date Submit Date Provider Last Modified By Organization Details Last Modified Time Details Appointments U/S OB SNEAK PEAK 2024 10:00A M ULTRASOUND Not available Not available Not available OB SCREEN 2024 10:30A M Rose Marie Niño CNM Not available Not available Not available Lab anti-mu llerian hormone (amh), serum 2024 025 [facility] (Lab), [address], [place], [address], 05/24/2024 18:05:57 FSH (follic le-stim ulating hormone ), serum 2024 025 [facility] (Lab), [address], [place], [address], 05/24/2024 18:05:59 estradi ol, serum 2024 025 [facility] (Lab), [address], [place], [address], 05/24/2024 18:05:58 TSH, serum, reflex free T4 2024 025 [facility] (Lab), [address], [place], [address], 05/25/2024 04:07:28 HbA1c (hemogl obin A1c), blood 2024 025 [facility] (Lab), [address], [address], 05/24/2024 18:05:59 vitamin D, 25-hydr oxy, total, serum 2024 025 [facility] (Lab), [address] [place], [address], 05/25/2024 04:07:28 prolact in, serum 2024 025 [facility] (Lab), [address] [place], [address], 05/24/2024 18:05:58 lh (lutein izing hormone ), serum 2024 025 [facility] (Lab), [address] [place], [address], 05/24/2024 18:05:58 17-hydr oxyprog esteron e, QN, serum 2024 025 [facility] (Lab), [address] [place], [address], 05/24/2024 18:05:59 Referral None recorde d. Procedures None recorde d. Surgeries None recorde d. Imaging None recorde d. Medication Orders None recorde d. Patient TargetsNo targets recorded. Patient InstructionsNo instructions recorded. Reason for Referral None Reported. Results Created Date Observation Date Name Description Value Unit Range Abnormal Flag Note LastModifiedBy Organization Detail LastModifiedTime 01/30/20 23 01/29/2023 IMAGE GUIDE D PAP AND HPV REGAR DLESS image guided Pap, HPV regardless of Pap result SEE RESULT S BELOW CASE REPOR T: Cytol ogy Gynec ologi tomasz Repor t Case: [id number] Autho sam collins Provi javier: Yoselyn Nelson NP Colle cted: 01/29 1317 Order ing Locat ion: [place] [facility] Recei byron: 01/30 0113 First Scree n: Chari Vela , [place] Speci men: Karolyn leyva Pap - Image d, Cervi x STATE MENT OF ADEQU ACY: Satis facto ry for evalu ation Trans forma tion zone compo nent prese nt FINAL DIAGN OSIS: Negat nash for Intra epith elial Riana donald or Ej savage (NIL) . Elect tea marie jagdeep d by Chari Vela , CT on 2022 at 10:34 AM ----- ----- ----- ----- ----- ----- ----- ----- ----- ----- ----- ----- ----- ----- ----- ----- ----- ---- HPV RESUL TS: HPV mRNA E6/E7 : No HPV mRNA Detec kishor NOTE: This high risk HPV mRNA assay detec ts fourt een high- risk HPV types (16, 18, 31, 33, 35, 39, 45, 51, 52, 56, 58, 59, 66, 68) witho ut diffe renti ation . COMME NT: This speci men was revie wed by a Cytot echno logis t and/o r Patho logis t (as indic ated in this repor t) after evalu ation using the Thinp rep Imagi ng Syste m. CLINI TOMASZ INFOR MATIO N: Menst rual Statu s: LMP (if appli cable ): Clini tomasz Histo ry/Pr eviou s Pap: Type of Neopl osiris (if appli cable ): Signi fican t Clini tomasz Findi ngs: Other Histo ry: Hormo mateus (if appli cable ): PAP EDUCA KINGS L NOTE: The Pap Test is a scree gordon test with an inher ent false negat nash rate. Liqui d-bas ed sampl ing may decre ase, but will not elimi tom, false negat nash resul ts. A negat nash resul t does not precl ude the prese nce and/o r devel opmen t of disea se, since the prese nce of abnor mal cells in the sampl e depen ds on the locat ion of the lesio n and sampl ing techn ique. Raisa nued regul ar scree gordon is the best metho d of cance r preve ntion . If repor kishor cytol ogic findi ng do not corre late with physi tomasz and/o r histo rical findi ngs, furth er inves tigat ion is recom joseph d, as clini candie warra nted. Not Available [facility] (Lab) [address], [place], [address], 02/01/2023 11:36:49 05/19/1905/19/2024 ANTIM EMMA CLOUD HORMO NE (AMH) anti-mulleri an hormone (amh) 1.58 NG/mL Femal e Refer ence Range s 20-24 years : 1.22 - 11.70 ng/mL 25-29 years : 0.89 - 9.85 ng/mL 30-34 years : 0.58 - 8.13 ng/mL 35-39 years : 0.15 - 7.49 ng/mL 40-44 years : 0.03 - 5.47 ng/mL The follo wing resul ts were obtai haley with the Elecs ys assay . Resul ts from assay s of other manuf actur es canno t be used inter [facility]. Not Available [facility] (Lab) [address] [place], [address], 05/24/2024 18:05:57 05/19/19 25 05/19/2024 ESTRA DIOL estradiol 92.2 pg/mL This assay was perfo rmed using [employer] ratio n reage nts and test kits. Value s obtai haley with other assay metho ds or kits canno t be used inter [facility] . Femal e Estra diol Range s: Folli cular phase 12.4- 233 pg/mL Ovula tion phase 41.0- 398 pg/mL Lutea l phase 22.3- 341 pg/mL Postm enopa usal <5-13 8 pg/mL Healt hy Pregn ant Women 1st Trime ster 154-3 243 pg/mL 2nd Trime ster 1561- 10177 pg/mL 3rd Trime ster 8525- >3000 0 pg/mL Not Available [facility] (Lab) [address] [place], [address], 05/24/2024 18:05:58 05/19/1905/19/2024 PROLA CTIN prolactin, total 11.70 NG/mL 4.79-2 3.30 This assay was perfo rmed using [employer] reage nts and test kits. Value s obtai haley with other assay metho ds or kits canno t be used inter [facility] . Not Available [facility] (Lab) [address], [place], [address], 05/24/2024 18:05:58 05/19/1905/19/2024 LH (LUTE NIZIN G HORMO NE) LH 4.1 mIU/m L This assay was perfo rmed using [employer] reage nts and test kits. Value s obtai haley with other assay metho ds or kits canno t be used inter [facility] . Femal es Mid-F ollic ular: 2.4-1 2.6 mIU/m L Mid-C ycle: 14.0- 95.6 mIU/m L Mid-L uteal : 1.0-1 1.4 mIU/m L Postm enopa use: 7.7-5 8.5 mIU/m L Not Available [facility] (Lab) [address] [place], [address], 05/24/2024 18:05:58 05/19/19 25 05/19/2024 FSH FSH 3.8 mIU/m L This assay was perfo rmed using [employer] reage nts and test kits. Value s obtai haley with other assay metho ds or kits canno t be used inter [facility] . Femal es Folli cular : 3.5-1 2.5 mIU/m L Ovula tion: 4.7-2 1.5 mIU/m L Lutea l: 1.7-7 .7 mIU/m L Postm enopa use: 25.8- 134.8 mIU/m L Not Available [facility] (Lab) [address], [place], [address], 05/24/2024 18:05:59 05/19/19 25 05/19/2024 HEMOG LOBIN A1C hemoglobin A1C 5.6 % 4.0-5. 6 The Ameri can Diabe nick Assoc iatio n recom mends that a prima ry goal of thera py brittany d be a HBA1C of < 7% and that physi cians shoul d reeva luate the treat ment regim en in patie nts with HBA1C value s consi stent ly > 8%. <5.7% Ping l 5.7 - 6.4% Incre ased risk for diabe nick >=6.5 % Diagn ostic of diabe nick <7.0% Goal of thera py >8.0% Actio n sugge sted Not Available [facility] (Lab) [address] [place], [address], 05/24/2024 18:05:59 05/19/19 25 05/19/2024 17-OH PROGE STERO NE 17-hydroxypr ogesterone, lc/MS/MS 120 NG/dL Adult Femal e Refer ence Range s for 17-Hy droxy proge stero ne: Pre-M enopa usal Mid Folli cular : 23-10 2 ng/dL Pre-M enopa usal Surge : 67-34 9 ng/dL Pre-M enopa usal Mid Lutea l: 139-4 31 ng/dL Postm enopa usal Phase : < or = 45 ng/dL Pregn cherelle: First Trime ster: 78-45 7 ng/dL Secon d Trime ster: 90-35 7 ng/dL Third Trime ster: 144-5 78 ng/dL This test was devel oped and its magdalene tical perfo rmanc e rivas cteri stics have been deter mined by [employer]. It has not been clear ed or appro byron by FDA. This assay has been valid ated pursu ant to the CLIA regul ation s and is used for clini tomasz purpo ses. Perfo rming Organ izati on Infor matio n: Site ID: [id number] Name: [facility] , Addre ss: [id number] [facility] [place] [address] Direc tor: Nadya matos MD,Ph D,GLENDY Not Available [facility] (Lab) [address], [place], [address], 05/24/2024 18:05:59 Result Notes None recorded. Procedures Surgical History Date Name Laterality Status Provider Name and Address Organization Details Recorded Time 3 Date of Last Pap Smear completed Haleigh Cheatham [facility] 02/04/2024 11:39:40 9 amputation of toe completed Sammie Miller [facility] 02/02/2023 13:35:27 9 endoscopy of trachea completed Sammie Miller [facility] 02/02/2023 13:36:31 tonsilectomy/a denoids completed Sandi Perez [facility] 01/29/2023 11:44:05 Imaging Results None recorded. Procedure Notes None recorded. Medical Equipment None Reported. Allergies Allergen ID Allergen Name Allergen Category Reaction Reaction Severity Criticality Documentation Date Start Date Code Code System Note Provider Name and Address Organization Details Recorded Time nifedipin e medicatio n rash severe Not available 01/29/2023 7417 RxNorm Sandi ruiz, [facility] 3 11:36:20 63619 Compazine medicatio n lighthead edness severe Not available 01/29/2023 81994 6 RxNorm Sandi ruiz, [facility] 3 11:36:25 Medications Name Sig Start Date Stop Date Status Note LastModified by Organization Details LastModified Time azithromy jennifer 250 mg tablet 02/21 completed Not Available Not Available Not Available ibuprofen 800 mg tablet 02/21 completed Not Available Not Available Not Available Imuran 50 mg tablet take 1 tablet by oral route every day 05/12 completed Prescrib ed Elsewher e: Yes Loca tion: [facility] odify By: lisa allen DateTime : 07/11/19 16 01:30:00 PM Not Available Not Available Not Available hydrocodo ne 5 mg-acetam inophen 325 mg tablet TAKE 1 TABLET BY MOUTH EVERY 6 HOURS NEEDED FOR PAIN. DO NOT EXCEED 4000 MG 4 GM OF ACETAMIN OPHEN / 24 HOURS 01/29 completed Not Available Not Available Not Available ondansetr on HCl 4 mg tablet TAKE 1 TABLET BY MOUTH EVERY 6 HOURS NEEDED FORNAUSE A AND VOMITING 01/29 completed Not Available Not Available Not Available dexametha sone 6 mg tablet 02/21 completed Not Available Not Available Not Available acetamino phen 300 mg-codein e 30 mg tablet 01/29 completed Not Available Not Available Not Available sulfameth oxazole 800 mg-trimet hoprim 160 mg tablet 02/21 completed Not Available Not Available Not Available omeprazol e 40 mg capsule,d elayed release TAKE 1 CAPSULE BY MOUTH TWICE DAILY BEFORE BREAKFAS T AND SUPPER active Not Available Not Available No t Available acetamino phen 500 mg tablet 01/29 completed Not Available Not Available Not Available Macrobid 100 mg capsule take 1 capsule (100MG) by oral route every 12 hours with food, as directed 11/10 completed Prescrib ed Elsewher e: No Locat ion: [facility] odify By: [email or web address] keanu En counter DateTime : 07/15/19 14 01:39:56 PM Not Available Not Available Not Available alprazola m 0.25 mg tablet TAKE 1 TABLET BY MOUTH THREE TIMES DAILY NEEDED FOR ANXIETY active Not Available Not Available No t Available benzonata te 100 mg capsule active Not Available Not Available Not Available cephalexi n 500 mg capsule 01/29 completed Not Available Not Available Not Available pantopraz ole 40 mg tablet,de layed release 02/21 completed Not Available Not Available Not Available erythromy jennifer 5 mg/gram (0.5 %) eye ointment 01/29 completed Not Available Not Available Not Available Prednison e Intensol 5 mg/mL oral concentra te take 1 millilit er by oral route 4 times every day 05/12 completed Prescrib ed Elsewher e: Yes Loca tion: [facility] odify By: lisa Encounte r DateTime : 07/11/19 16 01:30:00 PM Not Available Not Available Not Available prednisol one 5 mg/5 mL oral solution take 5 millilit er by oral route every day with food 05/12 completed Prescrib ed Elsewher e: Yes Loca tion: [facility] odify By: lisa Encounte r DateTime : 07/11/19 16 01:30:00 PM Not Available Not Available Not Available ranitidin e 150 mg capsule take 1 capsule by oral route 2 times every day 05/12 completed Prescrib ed Elsewher e: Yes Loca tion: [facility] odify By: jdarvin Encounte r DateTime : 07/11/19 16 01:30:00 PM Not Available Not Available Not Available ibuprofen 600 mg tablet TAKE 1 TABLET BY MOUTH EVERY 6 HOURS NEEDED FOR PAIN 02/21 completed Not Available Not Available Not Available methylpre dnisolone 4 mg tablets in a dose pack FOLLOW PACKAGE DIRECTIO NS 01/29 completed Not Available Not Available Not Available albuterol sulfate HFA 90 mcg/actua tion aerosol inhaler active Not Available Not Available Not Available Vitamin D2 1,250 mcg (50,000 unit) capsule take 1 capsule (46121VM ITS) by oral route every week 06/22 completed Prescrib ed Elsewher e: No Locat ion: [facility] odify By: melinda addison DateTime : 11/15/19 14 02:07:19 PM Not Available Not Available Not Available cefdinir 300 mg capsule TAKE 1 CAPSULE BY MOUTH EVERY 12 HOURS 02/21 completed Not Available Not Available Not Available fluticaso ne propionat e 50 mcg/actua tion nasal spray,tomas pension SHAKE LIQUID AND USE 2 SPRAYS IN EACH NOSTRIL TWICE DAILY 01/29 completed Not Available Not Available Not Available amoxicill in 875 mg-potass ium clavulana te 125 mg tablet TAKE 1 TABLET BY MOUTH TWICE DAILY WITH THE MORNING AND EVENING MEAL FOR 10 DAYS 01/29 completed Not Available Not Available Not Available iron 65 mg tablet 02/03 completed Not Available Not Available Not Available oxycodone 5 mg tablet 02/21 completed Not Available Not Available Not Available Vitamins and Minerals tablet 01/29 completed Prescrib ed Elsewher e: Yes Loca tion: [facility] odify By: francine Luu r DateTime : 07/11/19 16 01:30:00 PM Not Available Not Available Not Available Calcium-5 00 500 mg (as calcium carbonate 1,250 mg) tablet active Prescrib ed Elsewher e: Yes Loca tion: [facility] odify By: francine Luu r DateTime : 07/11/19 16 01:30:00 PM Not Available Not Available Not Available escitalop monica 10 mg tablet TAKE 1 TABLET BY MOUTH DAILY active Not Available Not Available No t Available escitalop monica 20 mg tablet TAKE 1 TABLET BY MOUTH DAILY 02/21 completed Not Available Not Available Not Available bupropion HCl XL 150 mg 24 hr tablet, extended release TAKE 1 TABLET BY MOUTH EVERY MORNING. TAKE WITH LEXAPRO active Not Available Not Available No t Available 05/16 (28) 1 mg-20 mcg (21)/75 mg (7) tablet take 1 tablet by oral route every day 05/12 completed Prescrib ed Elsewher e: No Locat ion: [facility] odify By: lisa Luu r DateTime : 08/18/19 02:15:00 PM Not Available Not Available Not Available Lexapro 5 mg tablet take 2 tablet by oral route every day 01/29 completed Prescrib ed Elsewher e: Yes Loca tion: [facility] odify By: lisa Luu r DateTime : 05/12/19 10:15:00 AM Not Available Not Available Not Available Ortho-Cyc millie (28) 0.25 mg-35 mcg tablet take 1 tablet by oral route every day 06/07 completed Prescrib ed Elsewher e: No Locat ion: [facility] odify By: nina addison DateTime : 01/13/20 04:38:41 PM Not Available Not Available Not Available ascorbic acid (vitamin C) 02/03 completed Not Available Not Available Not Available cholecalc iferol (vitamin D3) 02/03 completed Not Available Not Available Not Available active Not Available Not Avai lable Not Available Wellbutri n 02/03 completed Not Available Not Available Not Available Calcium 600 + D(3) 02/03 completed Not Available Not Available Not Available Vitamin D3 10 mcg (400 unit) capsule active Prescrib ed Elsewher e: Yes Loca tion: [facility] odify By: lisa Luu r DateTime : 05/12/19 10:15:00 AM Not Available Not Available Not Available Prilosec 2.5 mg oral suspensio n,delayed release 01/29 completed Prescrib ed Elsewher e: Yes Loca tion: [facility] odify By: lisa Luu r DateTime : 05/12/19 10:15:00 AM Not Available Not Available Not Available magnesium glycinate 02/03 completed Not Available Not Available Not Available Antibioti c(neomy-b acit-poly m) 3.5 mg-400 unit-5,00 0 unit/gram top oint 11/11 completed Prescrib ed Elsewher e: Yes Loca tion: [facility] odify By: melinda addison DateTime : 07/23/19 12 01:00:00 PM Not Available Not Available Not Available B12 02/21 completed Not Available Not Available Not Available Adolfo uo DHA 29 mg-1 mg-400 mg oral pack take 2 by Oral route every day for 30 days 07/06 completed Prescrib ed Elsewher e: No Locat ion: [facility] odify By: shaquille carvajal DateTime : 06/07/19 14 10:30:00 AM Not Available Not Available Not Available Eliquis 5 mg tablet TAKE 1 TABLET BY MOUTH TWICE DAILY 02/21 completed Not Available Not Available Not Available Eliquis 2.5 mg tablet take 1 tablet by oral route 2 times every day 02/03 completed Prescrib ed Elsewher e: Yes Loca tion: [facility] odify By: lisa allen DateTime : 05/12/19 10:15:00 AM Not Available Not Available Not Available Eliquis 02/03 completed Not Available Not Available Not Available Acid Hadoop Developer (omeprazo le) 02/03 completed Not Available Not Available Not Available Vitals Date Recorded Body height Body mass index (BMI) Body weight Systolic blood pressure Diastolic blood pressure Provider Name and Address Organization Details Last Updated DateTime 01/29/2023 167.64 cm 42.1 kg/m2 014494.6 1 g 120 mm[Hg] 80 mm[Hg] Sandi Perez [facility] 3 11:36:09 Date Recorded Body height Body mass index (BMI) Body weight Systolic blood pressure Diastolic blood pressure Provider Name and Address Organization Details Last Updated DateTime 02/22/2024 167.64 cm 41.3 kg/m2 551345.6 5 g 121 mm[Hg] 88 mm[Hg] Haleigh Cheatham [facility] 4 12:34:51 Date Recorded Body height Body mass index (BMI) Body weight Systolic blood pressure Diastolic blood pressure Provider Name and Address Organization Details Last Updated DateTime 05/18/2024 167.64 cm 42.8 kg/m2 572969.9 8 g 117 mm[Hg] 84 mm[Hg] Lilian Campbell [facility] 12:29:57 Social History Question Answer Notes LastModified by Organizat ion Details LastModified Time Tobacco Smoking Status Never Smoker Sandiconnie Tongrajat ruiz, [facility] 01/29/2023 11:44:19 Do You Have An Advance Directive? No [email or web address] Information n ot available 02/22/2024 Are You Blind Or Do You Have Difficulty Seeing? No [email or web address] Information n ot available 02/02/2023 What Is Your Level Of Caffeine Consumption? Moderate [email or web address] Information not available 02/22/2024 How Much Tobacco Do You Chew? None Information not available 02/04/2024 In The 14 Days Before Symptom Onset, Have You Had Close Contact With A Laboratory-confirm ed COVID-19 While That Case Was Ill? No [email or web address] Information n ot available 02/02/2023 In The 14 Days Before Symptom Onset, Have You Had Close Contact With A Person Who Is Under Investigation For COVID-19 While That Person Was Ill? No [email or web address] Information not available 02/02/2023 Have You Been To An Area Known To Be High Risk For COVID-19? No [email or web address] Information not available 02/02/2023 Are You Deaf Or Do You Have Serious Difficulty Hearing? No [email or web address] Information not available 02/02/2023 What Type Of Diet Are You Following? REGULAR [email or web address] Information n ot available 02/02/2023 What Is The Highest Grade Or Level Of School You Have Completed Or The Highest Degree You Have Received? [id number] [email or web address] Information not available 02/04/2024 Are There Any Guns Present In Your Home? Yes [email or web address] Information not available 02/04/2024 Do You Use Protection During Sex? No Information not available 02/04/2024 Do You Use Your Seat Belt Or Car Seat Routinely? Yes [email or web address] Information not available 02/02/2023 Do You Have Smoke And Carbon Monoxide Detectors In Your Home? Yes [email or web address] Information not available 02/02/2023 How Much Tobacco Do You Smoke? No [email or web address] Information not available 02/04/2024 Do You Use Sunscreen Routinely? No Information not available 02/04/2024 Has Tobacco Cessation Counseling Been Provided? No Information not available 01/29/2023 Have You Used IV Drugs? No [email or web address] Information not available 02/04/2024 Do You Have Difficulty Walking Or Climbing Stairs? No [email or web address] Information not available 02/02/2023 Sex: Unknown Functional Status Question Answer Note LastModified by Organizat ion Details LastModified Time Do you use any illicit or recreational drugs? No Information not available 01/29/2023 Do you or have you ever used any other forms of tobacco or nicotine? No Information not available 01/29/2023 What is your level of alcohol consumption? None Information not available 01/29/2023 Are you able to walk? YESWOREST [email or web address] Information not available 02/02/2023 Are you able to care for yourself? 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 No [email or web address] Information not available 02/02/2023 What is your exercise level? Occasional [email or web address] Information not available 02/02/2023 Mental Status Question Answer Note LastModified by Organization D etails LastModified Time Do you feel stressed (tense, restless, nervous, or anxious, or unable to sleep at night)? [id number] Information not available 05/18/2024 Family History Relationship Description Onset Age of this Age Resolved Age Notes LastModified by Organization Details LastModified Time Maternal Grandmother Malignant tumor of breast [email or web address] Not available 02/02 13:34:33 Notes:Maternal grandmother: Cancer, breast Medical History Condition Response Allergies (Food, seasonal, environmental ) N Other Y Breast Cancer N Drug/Latex Allergies/Reactions Y Blood Transfusion N Dermatologic Disorders N Lung Disease N Defects or Inherited Disease N Breast Problem N Gestational Diabetes N Hematologic disorders N Anesthesia Complications N History of STI N Deep Vein Thrombosis Y Polycystic ovary syndrome N Anxiety Disorder Y Autoimmune disease Y Arthritis Y Infertility N Polyps N Acid Reflux (GERD) Y History of abnormal pap N Cancer N Stroke N Varicosities N Neurologic/Epilepsy N Endometriosis N High Cholesterol N Headaches N Fibromyalgia N Kidney Disease N Heart Problems N Kidney or Bladder Problems Y Thyroid Problems N GI Problems N Eating Disorder N Anemia Y Art (IVF or FET) N Psychiatric Illness N Ovarian Cancer N Diabetes N Pulmonary (TB, Asthma) N Hepatitis/Liver Disease N No Past Medical History N Eczema N Urinary Tract Infection N Abuse/Domestic Violence N Asthma N Trauma/Violence N Depression/ depression Y Heart Disease N Pre-Eclampsia N Hypertension N Osteoporosis N Thrombophilias N Gynecological History Statement/Question Response Flow Moderate Date of Last Mammogram Date of LMP 04/28/2024 N On BCP's at Conception? N STIs/STDs N Was last menstrual period normal Y HPV Vaccine N Duration of Flow (days) 5 Current Control Method Seeking Pre gnancy Age at First Child 23 Frequency of Cycle (Q days) 24 Sexually Active? Y None Menses Monthly Y Date of DEXA bone scan Age of first menstrual cycle 9 Date of Last Pap Smear 01/29/2023 Sexual Problems? N LMP Definite Desired Control Method None N Obstetrics History GPAL:G 1 P 1 0 0 1 Type Value Full Term 1 Living 1 Total 1 Past Encounters Encounter ID Performer Location Encounter Start Date Encounter Closed Date Diagnosis/Indication Diagnosis SNOMED-CT Code Diagnosis ICD10 Code Diagnosis Note [id number] RAMESH Zamorano [place] [address] [address] 01/29/2023 11:22:28 01/29/2023 12:13:56 Gynecologic examination [id number] Z01.419 WWEBC - condomsno hx of abnormal papspap updatedSTI testing declinedUT D with PCPConside ring future fertility, recommende d MFM preconcept ion counseling and to discuss with rheumatolo gist as well. Referral sent.RTC in 1 year or sooner if needed Encouraged adequate Calcium with Vitamin D daily It is strongly advised to have an annual flu shot and up can obtain at most pharmacies . If you have not had a TDap shot in the last 10 years you should obtain one as well. Discussed with patient & provided with informatio n regarding Gardisil vaccine to prevent the 4 strains for HPV that cause cervical cancer if under age 26. Encourage safe sexual practices, to use condoms and limit partners if not already in a monogamous relationsh ip. Do monthly self breast exams. Have mammogram yearly or every other year depending on family history. BRCA testing is now available for patients with strong genetic history of female cancer. If interested contact the office. Engage in daily exercise of low impact aerobic exercise 45-60 minutes 4-5 times weekly. Avoid tobacco and illicit drugs as well as using moderation with alcohol intake less than 1-2 8 oz beverages daily. This lifestyle behavior pattern will lead to less health conditions and longer life span. If BMI greater than 25 dietary consult advised. Patient received above instructio ns, and questions have been answered. If you have any questions please call or respond to this email. Patient was made aware of the patient portal and may obtain a paper copy of today's plan if desired. [facility] care management [id number] Z31.9 [id number] Noel Medina MD [place] [address] [address] 02/22/2024 12:19:47 02/22/2024 13:01:09 Gynecologic examination [id number] Z01.419 Annual gynecologi tomasz exam performed [id number]|2024-09-07 13:16:00|2024-09-07 13:16:00|XMS_ITS|BKG DAEMON|External Medical Summaries|[id number]|" Encounter Summary Created on: September 07, 2024 Myrna Hancock : 1990 Sex: Female Author Organization [facility] Address [address] [place] [address] Care Team Providers Care Senior Environmental Consultant Name Role Phone David Shea MD Primary Care Provider [phone] Samara Whitfield RN Unavailable Rigo Aden MD Unavailable Henna España MD Unavailable Reason for Visit * Reason Onset Date Comments Future Appointment 10/22/2020 Follow Up Encounter Details Date Type Department Care Team (Late st Contact Info) Description 10/22/2020 Telephone [facility] [address] [facility], [place] [address] Jeet Allan MD [facility] [place] [address] Future Appointment (Follow Up) Social History Tobacco Use Types Packs/Day Years Used Date Smoking Tobacco: Never Smokeless Tobacco: Never Alcohol Use Standard Drinks/Week Comments No 0 (1 standard drink = 0.6 oz pur e alcohol) Comments No Sex and Gender Information Value Date Recorded Sex Assigned at Not on file Legal Sex Female 5:19 PM METER SHOP SUPERINTENDENT Gender Identity Not on file Sexual Orientation Not on file COVID-19 Exposure Response Date Recorded In the last month, have you been in contact with someone who was confirmed or suspected to have Coronavirus / COVID-19? No / Unsure 10/24/2020 12:46 PM CDT documented as of this encounter [...] Author No 10/19/2020 5:16 PM CDT Nichole Lopez, DANY * Does person have difficulty doing errands alone? Answer Date of Assessment Author No 10/19/2020 5:16 PM CDT Nichole Lopez RN documented as of this encounter Mental Status * Does person have difficulty concentrating/remembering/making decisions? Answer Entry Date Author No 10/19/2020 5:16 PM CDT Nichole Lopez RN documented in this encounter Miscellaneous Notes * Telephone Encounter - Gisselle Wellington - 10/23/2020 11:02 AM CDT 2nd attempt to reach patient to schedule. Left message asking patient to call and schedule 8 week follow up with Dr. Allan * Telephone Encounter - Deana Bolden - 10/22/2020 9:14 AM CDT I left a voicemail requesting this patient call back to schedule an 8 week follow up with [address]. Allan. ----- Message from Justin Myles MD sent at 10/20/2020 12:09 AM CDT ----- Regarding: Follow up in [address] Allan Hi, Dr. Allan would like to follow up with this patient in 8 weeks. Thank you, Justin documented in this encounter Plan of Treatment Upcoming Encounters Date Type Department Care Team (Late st Contact Info) Description 09/13/2024 10:40 AM CDT Office Visit [facility] - Rheumatology [address] [place] [address], [facility] [place] [address] Anam Salmon MD [address] [place] [address] [place] [address] 01/02/2025 12:00 PM CDT Appointment [facility] [address] [place] [address] 01/02/2025 3:30 PM CDT Office Visit [facility] - Pulmonology [address] [facility], [place] [address] Lonnie Reveles MD [address] [place] [address] documented as of this encounter Visit Diagnoses Not on filedocumented in this encounter Additional Health Concerns Infection Onset Date Last Indicated Resolved Time COVID-19 Under Investigation 06/10/2022 06/10/2022 06/10/2022 9:19 PM METER SHOP SUPERINTENDENT COVID-19 Confirmed 06/10/2022 06/10/2022 3 4:35 AM METER SHOP SUPERINTENDENT COVID-19 Under Investigation 12/11/2023 12/11/2023 12/11/2023 11:00 PM CDT COVID-19 Confirmed 12/11/2023 12/11/2023 4 4:33 AM CDT documented as of this encounter Care Teams Senior Environmental Consultant Relationship Specialty Start Date End Date David Shea MD PCP - General 04/03/15 Samara Whitfield RN Heavy Equipment Service Technician 05/07/18 Rigo Aden MD [address] [place] [phone] Rheumatology 10/25/18 Henna España MD [address] [place] [address] [place] [address] Ophthalmology 03/12/22 documented as of this encounter "
[2024-09-07 14:27] LABS: Beta HCG Quantitative 97.81 mIU/ML
== END 2024-09-07 13:05 | disposition home or self-care (01) ==
LOC: ANHLAB 13:06
PROVIDERS: PCP Family Medicine; Visit Provider Advanced Practice Midwife
DX: O20.0 Threatened abortion (principal); Z3A.00 Weeks of gestation of pregnancy not specified
CPT/HCPCS: 36415; 84702; 86850; 86900; 86901

== ENCOUNTER 2024-09-09 13:04 | Outpatient (CLI) | payer OTHER, SELFPAY ==
--- OUTSIDE RECORDS SUMMARY | 2024-09-09 13:06 | XMS_ITS | Encounter Summary ---
Author Organization [facility] Address [address] [facility] [place] [address] Care Team Providers Care Control Room Operator Name Role Phone David Shea MD Primary Care Provider [phone] Samara Whitfield RN Unavailable Rigo Aden MD Unavailable Henna España MD Unavailable Reason for Visit * Reason Onset Date Comments MEDICATION REFILL 02/13/2021 Encounter Details Date Type Department Care Team (Late st Contact Info) Description 02/13/2021 Refill [facility] - General Surgery [address] [facility] 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 [place] Gender Identity Not on file Sexual Orientation [...] Visit [facility] - Rheumatology [address] [place] [address] Anam Salmon MD [address] [place] [address] [place] [address] 01/02/2025 12:00 PM CDT Appointment [facility] PFT [address] [place] [address] 01/02/2025 3:30 PM CDT [facility] [address] [place] [address] Lonnie Reveles MD [address] [place] [address] documented as of this encounter Visit Diagnoses Not on filedocumented in this encounter Additional Health Concerns Infection Onset Date Last Indicated Resolved Time COVID-19 Under Investigation 06/10/2022 06/10/2022 06/10/2022 9:19 PM PAINT GR[employer] [place] COVID-19 Confirmed 06/10/2022 06/10/2022 02/25/202 3 4:35 AM PA[employer] [place] COVID-19 Under Investigation 12/11/2023 12/11/2023 12/11/2023 11:00 PM CDT COVID-19 Confirmed 12/11/2023 12/11/2023 4 4:33 AM CDT documented as of this encounter Care Teams Control Room Operator Relationship Specialty Start Date End Date David Shea MD PCP - General 04/03/15 Samara Whitfield, RN Promotional Advertising Assistant 05/07/18 Rigo Aden MD [address] [place] [address] Rheumatology 10/25/18 Henna España MD [address] [place] [address] [place] [address] Ophthalmology 03/12/22 documented as of this encounter
--- OUTSIDE RECORDS SUMMARY | 2024-09-09 13:06 | XMS_ITS | Clinical Summary ---
Author Organization [facility] Address [address] [place] [address] Phone Care Team Providers Care Reiki Practitioner Name Role Phone David Shea MD Primary Care Provider [phone] Allergies Active Allergy Reactions Criticality Noted Date [...] daily. 90 Tablet 3 05/12/2024 9:04 AM RESIDENTIAL SUPERVISOR 05/26/2023 Active ALPRAZolam (XANAX) 0.25 mg tablet Take 1 Tablet (0.25 mg) by mouth 3 times daily as needed for anxiety 60 Tablet 5 05/27/2023 2:55 PM RESIDENTIAL SUPERVISOR 05/26/2023 Active oxyCODONE (ROXICODONE) 5 mg tablet Take 1 (one) tablet by mouth every 6 hours as needed for Pain 4 Tablet 06/03/2023 9:11 AM RESIDENTIAL SUPERVISOR 06/02/2023 Active azithromycin (ZITHROMAX) 250 mg tablet TAKE 2 TABLETS BY MOUTH ON DAY 1, THEN TAKE 1 TABLET BY MOUTH DAILY ON DAYS 2-5. 6 Tablet 12/11/2023 5:39 PM CDT 12/11/2023 Active omeprazole (PriLOSEC) 40 mg Capsule, Delayed Release(E.C.) Take 1 Capsule (40 mg) by mouth daily. 90 Capsule 3 05/31/2024 3:36 PM RESIDENTIAL SUPERVISOR 05/23/2024 Active buPROPion HCL (WELLBUTRIN XL) 150 [...] Ctr Infusion Center 2nd Fl [address] [place] [address] Anam Salmon MD Infusion Chair 8, 2nd Floor [place] Discharge Disposition: Home or Self Care 07/27/2024 10:00 AM CDT - 07/27/2024 11:59 PM CDT Hospital Encounter [facility] Center 2nd Fl [address] [place] [address] Anam Salmon MD Infusion Chair 9, 2nd Floor [place] Discharge Disposition: Home or Self Care 07/26/2024 External Device Data STL ABSTRACTION Provider, Abstract 07/26/2024 External Device Data STL ABSTRACTION Provider, Abstract 07/05/2024 Orders Only [facility] [address] [place] [address] David Shea MD 07/02/2024 External Device Data STL ABSTRACTION Provider, Abstract 06/15/2024 External Device Data ST[place] ABSTRACTION Provider, Abstract 06/14/2024 External Device Data [place] ABSTRACTION Provider, Abstract 06/14/2024 Orders Only [facility] Infusion Center 2nd Fl [address] [place] [address] Anam Salmon MD ANCA-associated vasculitis (CMS/HCC) (Primary [...] 10/10/2024 8:15 AM CDT Appointment [facility] Infusion Center 2nd Nh [address] [place] [address] Casi Hughes MD [address] [facility] [address] [place] [address] Anam Salmon MD [address] [address] Infusion Chair 9, 2nd Floor [place] 10/19/2024 9:00 AM CDT Appointment [facility] Infusion Center 2nd Fl [address] [place] [address] Infusion Chair 9, 2nd Floor [place] [facility] Maintenance Due Date Last Done Comments [...] Advance Directives For more information, please contact: [phone] * Full Code (Latest Code Status on [...] 10:47 AM 02/21/2019 2:30 PM Care Teams Reiki Practitioner Relationship Specialty Start Date End Date David Shea MD [address] [place] [address] PCP - General Family Practice 01/06/18
--- OUTSIDE RECORDS SUMMARY | 2024-09-09 13:06 | XMS_ITS | Encounter Summary ---
Author Organization [facility] Address [address] [facility] [place] [address] Care Team Providers Care Occupational Health Physiotherapist Name Role Phone David Shea MD Primary Care Provider [phone] Samara Whitfield RN Unavailable Rigo Aden MD Unavailable Henna España MD Unavailable [phone] Reason for Visit * Reason Onset Date Comments Future Appointment 10/22/2020 Follow Up Encounter Details Date Type Department Care Team (Late st Contact Info) Description 10/22/2020 Telephone [facility] [address] [facility], [place] [address] Jeet Allan MD [facility] [place] [address] Future Appointment (Follow Up) Social History Tobacco Use Types Packs/Day Years Used Date Smoking Tobacco: Never Smokeless Tobacco: Never Alcohol Use Standard Drinks/Week Comments No 0 (1 standard drink = 0.6 oz pur e alcohol) Comments No Sex and Gender Information Value Date Recorded Sex Assigned at Not on file Legal Sex Female 5:19 PM PRODUCE TEAM LEAD Gender Identity Not on file Sexual Orientation [...] Office Visit [facility] - Rheumatology [address] [place] [address], [facility] [place] [address] Anam Salmon MD [address] [place] [address] [place] [address] 01/02/2025 12:00 PM CDT Appointment [facility] [address] [place] [address] 01/02/2025 3:30 PM CDT Office Visit [facility] - Pulmonology [address] [place] [address], [place] [address] Lonnie Reveles MD [address] [place] [address] documented as of this encounter Visit Diagnoses Not on filedocumented in this encounter Additional Health Concerns Infection Onset Date Last Indicated Resolved Time COVID-19 Under Investigation 06/10/2022 06/10/2022 06/10/2022 9:19 PM PRODUCE TEAM LEAD COVID-19 Confirmed 06/10/2022 06/10/2022 3 4:35 AM PRODUCE TEAM LEAD COVID-19 Under Investigation 12/11/2023 12/11/2023 12/11/2023 11:00 PM CDT COVID-19 Confirmed 12/11/2023 12/11/2023 4 4:33 AM CDT documented as of this encounter Care Teams Occupational Health Physiotherapist Relationship Specialty Start Date End Date David Shea MD PCP - General 04/03/15 Samara Whitfield RN Middle School Band Teacher 05/07/18 Rigo Aden MD [address] [place] [address] Rheumatology 10/25/18 Henna España MD [address] [facility] DEPT [place] [address] Ophthalmology 03/12/22 documented as of this encounter
--- OUTSIDE RECORDS SUMMARY | 2024-09-09 13:07 | XMS_ITS | Encounter Summary ---
Author Organization [facility] Address [address] [facility] [place] [address] Care Team Providers Care Entry Level Administrative Assistant Name Role Phone David Shea MD Primary Care Provider [phone] Samara Whitfield RN Unavailable [phone] Rigo Aden MD Unavailable Henna España MD Unavailable [phone] Encounter Details Date Type Department Care Team (Late st Contact Info) Description 04/14/2019 Ophth Exam [facility] [address] [place] [address] Jamari Velasquez MD [address] [place], [place] [address] Social History Tobacco Use Types Packs/Day Years Used Date Smoking Tobacco: Never Smokeless Tobacco: Never Alcohol Use Standard Drinks/Week Comments No 0 (1 standard drink = 0.6 oz pur e alcohol) once or twice a year Comments No Sex and Gender Information Value Date Recorded Sex Assigned at Not on file Legal Sex Female 5:19 PM RETAIL SALES ASSOCIATE BILINGUAL Gender Identity Not on file Sexual Orientation [...] Office Visit [facility] - Rheumatology [address] [place] [address] Anam Salmon MD [address] [place] [address] [place] [address] 01/02/2025 12:00 PM CDT Appointment [facility] PFT [address] [place] [address] 01/02/2025 3:30 PM CDT Office Visit [facility] - Pulmonology [address] [place] [address] Lonnie Reveles MD [address] [place] [address] documented as of this encounter Visit Diagnoses Not on filedocumented in this encounter Additional Health Concerns Infection Onset Date Last Indicated Resolved Time COVID-19 Under Investigation 09/13/2019 09/13/2019 09/13/2019 10:29 PM CDT COVID-19 Under Investigation 06/10/2022 06/10/2022 06/10/2022 9:19 PM RETAIL SALES ASSOCIATE BILINGUAL COVID-19 Confirmed 06/10/2022 06/10/2022 02/25/202 3 4:35 AM RETAIL SALES ASSOCIATE BILINGUAL COVID-19 Under Investigation 12/11/2023 12/11/2023 12/11/2023 11:00 PM CDT COVID-19 Confirmed 12/11/2023 12/11/2023 4 4:33 AM CDT documented as of this encounter Care Teams Entry Level Administrative Assistant Relationship Specialty Start Date End Date David Shea MD PCP - General 04/03/15 Samara Whitfield, RN Safety Officer 05/07/18 Rigo Aden MD [facility] [place] [address] Rheumatology 10/25/18 Henna España MD [address] [place] [address] [place] [address] Ophthalmology 03/12/22 documented as of this encounter
--- OUTSIDE RECORDS SUMMARY | 2024-09-09 13:07 | XMS_ITS | Clinical Summary ---
Author Organization [facility] Address [address] [place] [address] Care Team Providers Care Digital Traffic Coordinator Name Role Phone David Shea MD Primary Care Provider [phone] Samara Whitfield RN Unavailable Rigo Aden MD Unavailable Henna España MD Unavailable Source Comments [facility],non-owned Affiliates and Associated Physician Practices is amultiple site organization consisting of ambulatory clinics and hospital sitesin [place], [place] and [place]. This disclosure is being madepursuant to the Care Everywhere program and may not contain all information available regarding this patient. Last updated 18.[facility] Allergies Active Allergy Reactions Criticality Noted Date [...] 08/12/2024 Telephone [facility] - Rheumatology [address] [place] [phone] Anam Salmon MD LABS ONLY 06/27/2024 4:00 PM [employer] Office Visit [facility] - Pulmonology [address] [place] [phone] Lonnie Reveles MD Granulomatosis with polyangiitis, unspecified whether renal involvement (Primary Dx); Orbital granulomatosis with polyangiitis (GPA); Tracheal stenosis; Dyspnea, unspecified type; Abnormal CT of the chest 06/27/2024 Travel 06/14/2024 10:29 AM [employer] - 06/14/2024 11:59 PM [employer] Hospital Encounter [facility] LAB OP DRAW STATION [address] [place] [address] Discharge Disposition: Home or Self Care 06/14/2024 10:00 AM [employer] Office Visit [facility] - Rheumatology [address] [place] [phone] Anam Salmon MD ANCA-associated vasculitis (Primary Dx); History of DVT (deep vein thrombosis); Therapeutic drug monitoring; Immunosuppression due to drug therapy ([facility]) ; Long-term current use of rituximab; Medication exposure during first trimester of ; Hypogammaglobulinemia 06/14/2024 Travel from Last 3 Months Immunizations Immunization Administration Dates Next Due INFLUENZA VACCINE, TRIV. (AF LURIA, FLUZONE TRIVALENT; 6MO+) (IIV3) 02/23/2019 Covid [employer] primary monoval ent 12+ yr 0.3mL Purple [...] Recorded Patient Health Questionnaire-2 Score 0 06/14/2024 [facility] - Occupational Stress [...] place to sleep or slept in a assisted (including now)? No 12/12/2023 Comments No Sex and Gender Information Value Date Recorded Sex Assigned at Not on file Legal Sex Female 5:19 PM [employer] Gender Identity Not on file Sexual Orientation Not on file Last Filed Vital Signs Vital Sign Reading Time Taken Comments Blood Pressure 109/78 06/27/2024 3:43 PM [employer] Pulse 102 06/27/2024 3:43 PM [employer] Temperature 36.8 C (98.2 F) 06/14/2024 10:07 AM [employer] Respiratory Rate 17 06/27/2024 3:43 PM [employer] Oxygen Saturation 98% 06/27/2024 3:43 PM [employer] Inhaled Oxygen Concentration 21% 12/12/2023 4 :00 AM CDT Weight 119.2 kg (262 lb 12.8 oz) 06/27/2024 3:43 PM [employer] Height 167.6 cm (5' 6 ) 06/27/2024 3:43 PM [employer] Body Mass Index 42.42 06/27/2024 3:43 PM [employer] Plan of Treatment Upcoming Encounters Date Type Department Care Team (Late st Contact Info) Description 09/13/2024 10:40 AM CDT Office Visit [facility] - Rheumatology [address] [place] [address], [place] [address] Anam Salmon MD [address] [place] [address] [place] [address] 01/02/2025 12:00 PM CDT Appointment [facility] PFT [address] [place] [phone] 01/02/2025 3:30 PM CDT Office Visit [facility] - Pulmonology [address] [place], [place] [address], [place] [address] Lonnie Reveles MD [address] [place] [address] Health Maintenance Due Date Last Done Comments [...] this topic Medical Devices Implanted Type Area Child Support Officer Device Identifier Shelf Expiration Date Model / Serial / Lot Set Intbt .016in .025in Crwfrd Nose - [id number] Implanted:Qty: 1 on 05/05/2022 by Henna España MD at [facility] [employer] 12/25/2025 [id number] / 00 / [id number] Procedures Procedure Name Priority Date/Time Associated Diagnosis Comments PROTEIN CREATININE RATIO URINE RANDOM PNL Routine 06/14/2024 11:55 AM [employer] ANCA-associated vasculitis URINALYSIS W/MICROSCOPIC REFLEX TO CULTURE Routine 06/14/2024 11:55 AM [employer] ANCA-associated vasculitis FLOW CYTOMETRY RITUXAN BLOOD Routine 06/14/2024 11:23 AM [employer] ANCA-associated vasculitis COMPREHENSIVE METABOLIC PANEL Routine 06/14/2024 11:23 AM [employer] ANCA-associated vasculitis CBC W AUTO DIFFERENTIAL Routine 06/14/19 11:23 AM [employer] ANCA-associated vasculitis NEUTROPHIL CYTOPLASMIC ANTIBODY Routine 06/14/2024 11:23 AM [employer] ANCA-associated vasculitis MPO/NJ 3 AUTOANTIBODIES PANEL Routine 06/14/2024 11:23 AM [employer] ANCA-associated vasculitis IMMUNOGLOBULINS IGG/IGM/IGA PANEL Routine 06/14/2024 11:23 AM [employer] ANCA-associated vasculitis HEPATITIS C AB SCREEN RFLX NAAT QUANT Routine 01/19/2023 10:43 AM CDT Need for hepatitis C screening test HIV-1 HIV-2 ANTIGEN/ANTIBODY STAT 12/09/2017 4:51 PM CDT from Last 3 Months or Most Recently Relevant to Health Maintenance Results * (ABNORMAL) URINALYSIS W/MICROSCOPIC REFLEX TO CULTURE (06/14/2024 11:55 AM [employer]) Color UA Yellow Straw, Yellow 06/14/2024 12:19 PM [employer]ER [facility] Clarity UA Slt Cloudy(A) Clear 06/14/2024 12:19 PM [facility] Specific [place] UA 1.023 1.005 - 1.030 06/14/2024 12:19 PM [facility] pH UA 6.0 5.0 - 8.0 pH 06/14/2024 12:19 PM [facility] Protein UA Negative Negative 06/14/2024 12:19 PM [facility] Glucose UA Negative Negative 06/14/2024 12:19 PM [facility] Ketone UA Negative Negative 06/14/2024 12:19 PM [facility] Bilirubin UA Negative Negative 06/14/2024 12:19 PM [facility] Blood UA Negative Negative 06/14/2024 12:19 PM [facility] Nitrite UA Negative Negative 06/14/2024 12:19 PM [facility] Leukocyte Esterase Negative Negative 06/14/2024 12:19 PM [facility] Urobilinogen UA Negative Negative mg/dL 06/14/2024 12:19 PM [facility] RBC UA 0-2 None Seen, 0-2, 3-5 /HPF 06/14/2024 12:19 PM [facility] WBC UA 0-5 None Seen, 0-5 /HPF 06/14/2024 12:19 PM [facility] Squamous Epithelial Cells UA 3-5 None Seen, 0-2, 3-5 /HPF 06/14/2024 12:19 PM [facility] Mucus UA 1+ /LPF 06/14/2024 12:19 PM [facility] Urine URINE SPECIMEN OBTAINED BY CLEAN CATCH PROCEDURE / Unknown Collection / Unknown 06/14/2024 11:[address] [facility] 06/14/2024 12:12 PM [facility] - 06/14/2024 12:[address] [facility] Culture Not Indicated Anam Salmon MD LAB - URINALYSIS ORDERABLES F inal Result Performing Organization Address City/State/[facility] Co de Phone Number [facility] [address] [place] [phone], [facility] [phone] * PROTEIN CREATININE RATIO URINE RANDOM PNL (06/14/2024 11:55 AM [employer]) Protein Urine 14 Not Established mg/dL 06/14/2024 12:51 PM [facility] Creatinine Urine 168.67 Not Established mg/dL 06/14/2024 12:51 PM [facility] Protein/Creati nine Ratio Urine 0.08 <0.10 06/14/2024 12:51 PM [facility] Urine URINE SPECIMEN OBTAINED BY CLEAN CATCH PROCEDURE / Unknown Collection / Unknown 06/14/2024 11:55 AM [employer] 06/14/2024 12:12 PM [employer] Anam Salmon MD LAB - URINE CHEMISTRY ORDERAB LES Final Result [facility] [address] [place] [address], [facility] [phone] * FLOW CYTOMETRY RITUXAN BLOOD (06/14/2024 11:23 AM [employer]) Reason for test ANCA-associated vasculitis (HCC) 447.8 06/14/2024 3:43 PM [facility] Client Specimen ID # [id number] 06/14/2024 3:43 PM [facility] Number of Markers 7 06/14/2024 3:43 PM [facility] Flow Cytometry Results Differential Result Comment WBC Count /uL 11,400 % Lymphocytes 18 Lymphocyte Count u/L 2,052 Cell Region A: Lymphocytes Surface Marker Results % Absolute Count (cells/uL) CD3 95 1,949 CD3+CD4+ 56 1,149 CD3+CD8+ 36 739 CD4:CD8 Ratio 1.56 CD19 0 0 CD20 0 0 CD45 100 2,052 CD56 4 82 06/14/2024 3:43 PM [facility] Flow Cytometry Interpretation Testing is technical only and does not require an interpretation of results. 06/14/2024 3:43 PM [facility] Reference Range Adult Normal Reference Range Adult (> 18 years) CD3 54-84 % CD4 33-63 % CD8 12-39 % CD19 5-19 % CD56 6-26 % CD4+CD45RA+ 30-50 % CD4+CD45RO+ 17-42 % CD19+CD27+ 7-48 % CD19+CD27+IgD+ 7-29 % CD19+CD27+IgD- 3-23 % CD19+YB42-ViW+ 29-93 % % 06/14/2024 3:43 PM [facility] Disclaimer Test performed at [facility], [address] [place], [place], [address]. This test was developed and its performance [...] perform high complexity clinical testing. By law [place], CD4 lymphocyte counts on patients with HIV infection must be reported by the physician to the [facility] authority. 06/14/2024 3:43 PM [employer]ICER [facility] PATHOLOGY LAB Embedded Images 3:43 PM [employer]ER [facility] PATH[facility] LAB Blood BLOOD SPECIMEN / Unknown Lab Venipuncture / Unknown 06/14/2024 11:23 AM [employer] 06/14/2024 12:14 PM [employer] Anam Salmon MD LAB - PATHOLOGY/CYTOLOGY LAKISHA MCINTYRE Final Result [facility] [address] [facility] [phone] * NEUTROPHIL CYTOPLASMIC ANTIBODY (06/14/2024 11:23 AM [employer]) Cytoplasmic (C-ANCA) <1:20 Neg:<1:20 titer 06/15/2024 3:09 PM [employer]ICER [facility] ([facility]) p-ANCA Titer <1:20 Neg:<1:20 titer 06/15/2024 3:09 PM [employer]ICER [facility] ([facility]) Comment: The presence of positive fluorescence exhibiting P-ANCA or C-ANCA patterns alone is not specific for the diagnosis of Bandar's Granulomatosis (WG) or microscopic polyangiitis. Decisions about treatment should not be based solely on ANCA IFA results. The International ANCA Group Consensus recommends follow up testing of positive sera with both NJ-3 and MPO-ANCA enzyme immunoassays. As many as 5% serum samples are positive only by EIA. Ref. AM J Clin Pathol 1999;111:507-513. Atypical p-ANCA Titer <1:20 Neg:<1:20 titer 06/15/2024 3:09 PM [employer] [facility] ([facility]) Comment: The atypical pANCA pattern has been observed in a significant percentage of patients with ulcerative colitis, primary sclerosing cholangitis and autoimmune hepatitis. Blood BLOOD SPECIMEN / Unknown Lab Venipuncture / Unknown 06/14/2024 11:23 AM [employer] 06/14/2024 12:10 PM [employer]ER Narrative [facility] ([facility]) - 06/15/2024 3:09 PM [employer]ER Performed at: [facility] [address] [place], [place] [id number] Deputy Clerk Of Superior Court: Everardo Concepcion PhD, Phone: [phone] Anam Salmon MD LAB - CHEMISTRY ORDERABLES Fi nal Result [facility] [address] [place] [address], [facility] * MPO/NJ 3 AUTOANTIBODIES PANEL (06/14/2024 11:23 AM [employer]) Serine Proteinase 3 IgG 2 0 - 19 AU/mL 06/17/2024 7:09 AM [employer]ICER [employer] ([facility]) Comment: INTERPRETIVE INFORMATION: Serine Proteinase 3, IgG 19 AU/mL or Less ........ Negative 20-25 AU/mL ............. Equivocal 26 AU/mL or Greater ..... Positive Approximately 85% of patients with a C-ANCA pattern by IFA have antibodies specific for PR3. Performed By: [facility] [address] [place] [address] Linen Room Attendant: Carlos Enrique Cruz MD, PhD CLIA Number: [id number] Myeloperoxidase Antibody 0 0 - 19 AU/mL 06/17/2024 7:09 AM [employer]ER [employer] ([facility]) Comment: INTERPRETIVE INFORMATION: Myeloperoxidase Abs, IgG 19 AU/mL or Less ......... Negative 20-25 AU/mL .............. Equivocal 26 AU/mL or Greater ...... Positive Approximately 90% of patients with a P-ANCA pattern by IFA have antibodies specific for MPO. Blood BLOOD SPECIMEN / Unknown Lab Venipuncture / Unknown 06/14/2024 11:23 AM [employer] 06/14/2024 12:10 PM [employer]ER Anam Salmon MD LAB - CHEMISTRY ORDERABLES Fi nal Result [facility]) [address] [place] [address] * (ABNORMAL) CBC WITH DIFFERENTIAL (06/14/2024 11:[address] [facility]) WBC 11.4(H) 4.0 - 10.7 x10E9/L 06/14/2024 12:25 PM [facility] RBC Count 4.63 3.90 - 5.20 x10E12/L 06/14/2024 12:25 PM [facility] Hemoglobin 13.3 11.9 - 15.8 g/dL 06/14/2024 12:25 PM [facility] Hematocrit 40.7 34.8 - 46.1 % 06/14/2024 12:25 PM [facility] MCV 87.9 80.0 - 98.0 fL 06/14/2024 12:25 PM [facility] MCH 28.7 26.7 - 33.6 pg 06/14/2024 12:25 PM [facility] MCHC 32.7 31.7 - 36.3 g/dL 06/14/2024 12:25 PM [facility] RDW-CV 14.0 11.3 - 14.8 % 06/14/2024 12:25 PM [facility] Platelet Count 397 150 - 420 x10E9/L 06/14/2024 12:25 PM [facility] MPV 10.5 7.8 - 11.4 fL 06/14/2024 12:25 PM [facility] Neutrophil % 69.4 41.0 - 74.0 % 06/14/2024 12:25 PM [facility] Lymphocyte % 20.8 17.0 - 47.0 % 06/14/2024 12:25 PM [facility] Monocyte % 6.3 3.0 - 11.0 % 06/14/2024 12:25 PM [facility] Eosinophil % 2.7 0.0 - 7.0 % 06/14/2024 12:25 PM [facility] Basophil % 0.4 0.0 - 1.6 % 06/14/2024 12:25 PM [facility] Immature Granulocytes % 0.4 0.0 - 1.0 % 06/14/2024 12:25 PM [facility] Neutrophil Absolute 7.91(H) 1.60 - 7.50 x10E9/L 06/14/2024 12:25 PM [facility] Lymphocyte Absolute 2.37 1.00 - 4.40 x10E9/L 06/14/2024 12:25 PM [facility] Monocyte Absolute 0.72 0.15 - 1.00 x10E9/L 06/14/2024 12:25 PM [facility] Eosinophil Absolute 0.31 0.00 - 0.60 x10E9/L 06/14/2024 12:25 PM [facility] Basophil Absolute 0.05 0.00 - 0.13 x10E9/L 06/14/2024 12:25 PM [facility] Blood BLOOD SPECIMEN / Unknown Lab Venipuncture / Unknown 06/14/2024 11:[address] [facility] 06/14/2024 12:[address] [facility] us Anam Salmon MD LAB - HEMATOLOGY ORDERABLES F inal Result Performing Organization Address [facility]/State/[facility] Co de Phone Number [address] [address] [phone] * COMPREHENSIVE METABOLIC PANEL (06/14/2024 11:[address] [facility]) BUN 15 7 - 26 mg/dL 06/14/2024 12:41 PM [facility] Creatinine 0.79 0.56 - 0.96 mg/dL 06/14/2024 12:41 PM [facility] Sodium 140 136 - 145 mmol/L 06/14/2024 12:41 PM [facility] Potassium 3.9 3.5 - 4.5 mmol/L 06/14/2024 12:41 PM [facility] Chloride 104 98 - 107 mmol/L 06/14/2024 12:41 PM [facility] CO2 26 22 - 29 mmol/L 06/14/2024 12:41 PM [facility] Glucose 86 70 - 99 mg/dL 06/14/2024 12:41 PM [facility] Calcium 9.0 8.4 - 10.2 mg/dL 06/14/2024 12:41 PM [facility] Protein Total 6.5 6.0 - 8.3 g/dL 06/14/2024 12:41 PM [facility] Albumin 3.9 3.4 - 5.0 g/dL 06/14/2024 12:41 PM [facility] Bilirubin Total 0.5 0.2 - 1.2 mg/dL 06/14/2024 12:41 PM [facility] Alkaline Phosphatase 134 40 - 150 U/L 06/14/2024 12:41 PM [facility] ALT 23 5 - 55 U/L 06/14/2024 12:41 PM [facility] AST 17 5 - 34 U/L 06/14/2024 12:41 PM [facility] Anion Gap 10 6 - 16 06/14/2024 12:41 PM [facility] BUN/Creatinine Ratio 19 7 - 23 06/14/2024 12:41 PM [facility] Osmolality Calculated 290 275 - 295 mOsm/kg 06/14/2024 12:41 PM [facility] Albumin/Globulin Ratio 1.5 1.1 - 2.3 06/14/2024 12:41 PM [facility] eGFR by CKD-EPI >90 >=90 mL/min/1.7 3 m2 06/14/2024 12:41 PM [facility] Blood BLOOD SPECIMEN / Unknown Lab Venipuncture / Unknown 06/14/2024 11:[address] [facility] 06/14/2024 12:[address] [facility] us Anam Salmon MD LAB - CHEMISTRY ORDERABLES Fi nal Result [facility] [address] [place] [address], [facility] [phone] * (ABNORMAL) IMMUNOGLOBULINS IGG/IGM/IGA PANEL (06/14/2024 11:23 AM [employer]) IgG 540(L) 767 - 1,590 mg/dL 06/14/2024 1:07 PM [employer]ER [facility] IgM 8(L) 37 - 286 mg/dL 06/14/2024 1:07 PM [facility] IgA 73 61 - 356 mg/dL 06/14/2024 1:07 PM [facility] Blood BLOOD SPECIMEN / Unknown Lab Venipuncture / Unknown 06/14/2024 11:23 AM [employer] 06/14/2024 12:10 PM [employer] Anam Salmon MD LAB - CHEMISTRY ORDERABLES Fi nal Result [facility] [address] [place] [address], [facility] [phone] * HEPATITIS C AB SCREEN RFLX NAAT QUANT (01/19/2023 10:43 AM CDT) Pathologist [facility] Hepatitis C Antibody Non-react nash Non-reac tive 01/19/2023 12:36 PM CDT [facility] Comment:Hepatitis C Antibody screen indicates no serologic [...] LAB - CHEMISTRY ORDERABLES Fi nal Result [id number]|2024-09-09 13:07:00|2024-09-09 13:07:00|XMS_ITS|JR RAMIREZ|External Medical Summaries|[id number]|" Encounter Summary Created on: September 09, 2024 Karissa Myrna Na : 1990 Sex: Female Author Organization [facility] Address [address] [facility] [place] [address] Care Team Providers Care Digital Traffic Coordinator Name Role Phone David Shea MD Primary Care Provider [phone] Samara Whitfield RN Unavailable Rigo Aden MD Unavailable Henna España MD Unavailable Encounter Details Date Type Department Care Team (Late st Contact Info) Description 02/16/2020 Telephone [facility] [address] [place] [address] Anam Salmon MD [address] [place] [address] Social History Tobacco Use Types Packs/Day Years Used Date Smoking Tobacco: Never Smokeless Tobacco: Never Alcohol Use Standard Drinks/Week Comments No 0 (1 standard drink = 0.6 oz pur e alcohol) once or twice a year Comments No Sex and Gender Information Value Date Recorded Sex Assigned at Not on file Legal Sex Female 5:19 PM [employer] Gender Identity Not on file Sexual Orientation [...] . Please have new orders sent/faxed to [facility]. Make sure they are sent, I have been having challenges with pt. Arriving at [facility] and they weren't able to see their orders. Thanks. Patient Call Back number: [phone] documented in this encounter Plan of Treatment Upcoming Encounters Date Type Department Care Team (Late st Contact Info) Description 09/13/2024 10:40 AM CDT Office Visit [facility] - Rheumatology [address] [place] [address], [place] [phone] Anam Salmon MD [address] [place] [address] [place] [phone] 01/02/2025 12:00 PM CDT Appointment [facility] [address] [place] [phone] 01/02/2025 3:30 PM CDT Office Visit [facility] - Pulmonology [address] [facility], [place] [phone] Lonnie Reveles MD [address] [place] [address] documented as of this encounter Visit Diagnoses Not on filedocumented in this encounter Additional Health Concerns Infection Onset Date Last Indicated Resolved Time COVID-19 Under Investigation 06/10/2022 06/10/2022 06/10/2022 9:19 PM [employer] COVID-19 Confirmed 06/10/2022 06/10/2022 3 4:35 AM [employer] COVID-19 Under Investigation 12/11/2023 12/11/2023 12/11/2023 11:00 PM CDT COVID-19 Confirmed 12/11/2023 12/11/2023 4 4:33 AM CDT documented as of this encounter Care Teams Digital Traffic Coordinator Relationship Specialty Start Date End Date David Shea MD PCP - General 04/03/15 Samara Whitfield RN Safety Officer 05/07/18 Rigo Aden MD [address] [place] [phone] Rheumatology 10/25/18 Henna España MD [address] [place] [address] [place] [phone] Ophthalmology 03/12/22 documented as of this encounter "
--- OUTSIDE RECORDS SUMMARY | 2024-09-09 13:07 | XMS_ITS | Encounter Summary ---
Author Organization [facility] Address [address] [place] [address] Care Team Providers Care Location Manager Name Role Phone David Shea MD Primary Care Provider [phone] Samara Whitfield RN Unavailable Rigo Aden MD Unavailable Henna España MD Unavailable Encounter Details Date Type Department Care Team (Late st Contact Info) Description 11/15/2018 Telephone [facility] [address] [address] Jeet Allan MD [address] [facility] 2L [place] [address] Social History Tobacco Use Types Packs/Day Years Used Date Smoking Tobacco: Never Smokeless Tobacco: Never Alcohol Use Standard Drinks/Week Comments No 0 (1 standard drink = 0.6 oz pur e alcohol) Comments No Sex and Gender Information Value Date Recorded Sex Assigned at Not on file 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 Sex Female 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 Gender Identity Not on file Sexual Orientation [...] Description 09/13/2024 10:40 AM CDT Office Visit [facility] - Rheumatology [address] [place] [address] Anam Salmon MD [address] [place] [address] [place] [address] 01/02/2025 12:00 PM CDT Appointment [facility] PFT [address] [place] [address] 01/02/2025 3:30 PM CDT Office Visit [facility] - Pulmonology [address] [place] [address] Lonnie Reveles MD [address] [place] [address] documented as of this encounter Visit Diagnoses Not on filedocumented in this encounter Additional Health Concerns Infection Onset Date Last Indicated Resolved Time COVID-19 Under Investigation 09/13/2019 09/13/2019 09/13/2019 10:29 PM CDT COVID-19 Under Investigation 06/10/2022 06/10/2022 06/10/2022 9:19 PM PLANT PULLER COVID-19 Confirmed 06/10/2022 06/10/2022 3 4:35 AM PLANT PULLER COVID-19 Under Investigation 12/11/2023 12/11/2023 12/11/2023 11:00 PM CDT COVID-19 Confirmed 12/11/2023 12/11/2023 4 4:33 AM CDT documented as of this encounter Care Teams Location Manager Relationship Specialty Start Date End Date David Shea MD PCP - General 04/03/15 Samara Whitfield, RN Screedman 05/07/18 Rigo Aden MD [address] [place] [address] Rheumatology 10/25/18 Henna España MD [facility] [place] [address] Ophthalmology 03/12/22 documented as of this encounter
[2024-09-09 14:12] LABS: Beta HCG Quantitative 21.11 mIU/ML
== END 2024-09-09 13:05 | disposition home or self-care (01) ==
LOC: ANHLAB 13:05
PROVIDERS: PCP Family Medicine; Visit Provider Advanced Practice Midwife
DX: Z34.90 Encounter for supervision of normal pregnancy, unspecified, unspecified trimester (principal); Z3A.00 Weeks of gestation of pregnancy not specified
CPT/HCPCS: 36415; 84702

== ENCOUNTER 2024-09-16 09:22 | Outpatient (CLI) | payer OTHER, SELFPAY ==
--- OUTSIDE RECORDS SUMMARY | 2024-09-16 09:25 | XMS_ITS | Encounter Summary ---
Author Organization [facility] Address [address] [place] [address] Care Team Providers Care Rubber Process Hand Name Role Phone David Shea MD Primary Care Provider [phone] Encounter Details Date Type Department Care Team (Late Contact Info) Description 09/14/2024 External Device Data [facility] ABSTRACTION Provider, Abstract NO ADDRESS ON FILE Social History Tobacco Use Types Packs/Day Years Used Date Smoking Tobacco: Never Smokeless Tobacco: Never Alcohol Use Standard Drinks/Week Comments Never 0 [...] on file documented as of this encounter Plan of Treatment Upcoming Encounters Date Type Department Care Team ([facility] Contact Info) Description 10/10/2024 8:15 AM CDT Appointment [facility] [address] [place] [address] Casi Hughes MD [address] [facility] [address] [place] [address] Anam Salmon MD [address] [address] Infusion Chair 9, 2nd Floor [facility] 10/19/2024 9:00 AM CDT Appointment [facility] 2nd Fl [address] [place] [address] Infusion Chair 9, 2nd Floor Richard documented as of this encounter Visit Diagnoses Not on filedocumented in this encounter Care Teams Rubber Process Hand Relationship Specialty Start Date End Date David Shea MD [address] [place] [address] PCP - General Family Practice 01/06/18 documented as of this encounter
--- OUTSIDE RECORDS SUMMARY | 2024-09-16 09:25 | XMS_ITS | Encounter Summary ---
Author Organization [facility] Address [address] [place] [address] Care Team Providers Care [place] Developer Name Role Phone David Shea MD Primary Care Provider [phone] Samara Whitfield RN Unavailable [phone] Rigo Aden MD Unavailable Henna España MD Unavailable Encounter Details Date Type Department Care Team (Late st Contact Info) Description 04/14/2019 Ophth Exam [facility] [address] [place] [address] Jamari Velasquez MD [address] [place], [place] [address] Social History Tobacco Use Types Packs/Day Years Used Date Smoking Tobacco: Never Smokeless Tobacco: Never Alcohol Use Standard Drinks/Week Comments No 0 (1 standard drink = 0.6 oz pur e alcohol) once or twice a year Comments No Sex and Gender Information Value Date Recorded Sex Assigned at Not on file 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 Sex Female 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 Gender Identity Not on file Sexual Orientation [...] Care Team (Late st Contact Info) Description 12/20/2024 11:40 AM CDT Office Visit [facility] Rhe[facility]ology [address] [place] [phone] Anam Salmon MD [address] [place] [address] [place] [address] 01/02/2025 12:00 PM CDT Appointment [facility] PFT [address] [place] [address] 01/02/2025 3:30 PM CDT Office Visit [facility] - Pulmonology [address] [place] [phone] Lonnie Reveles MD [address] [place] [address] documented as of this encounter Visit Diagnoses Not on filedocumented in this encounter Additional Health Concerns Infection Onset Date Last Indicated Resolved Time COVID-19 Under Investigation 09/13/2019 09/13/2019 09/13/2019 10:29 PM CDT COVID-19 Under Investigation 06/10/2022 06/10/2022 06/10/2022 9:19 PM MARKETING CO OP COVID-19 Confirmed 06/10/2022 06/10/2022 02/25/202 3 4:35 AM MARKETING CO OP COVID-19 Under Investigation 12/11/2023 12/11/2023 12/11/2023 11:00 PM CDT COVID-19 Confirmed 12/11/2023 12/11/2023 4 4:33 AM CDT documented as of this encounter Care Teams [place] Developer Relationship Specialty Start Date End Date David Shea MD PCP - General 04/03/15 Samara Whitfield, RN Adult Nurse Practitioner 05/07/18 Rigo Aden MD [facility] [place] [address] Rheumatology 10/25/18 Henna España MD [address] [place] [address] [place] [phone] Ophthalmology 03/12/22 documented as of this encounter
--- OUTSIDE RECORDS SUMMARY | 2024-09-16 09:25 | XMS_ITS | Clinical Summary ---
Author Organization [facility] Address [address] [place] [address] Phone Care Team Providers Care Mill Recorder Name Role Phone David Shea MD Primary Care Provider [phone] Allergies Active Allergy Reactions Criticality Noted Date [...] daily. 90 Tablet 3 05/12/2024 9:04 AM QA MANAGER 05/26/2023 Active ALPRAZolam (XANAX) 0.25 mg tablet Take 1 Tablet (0.25 mg) by mouth 3 times daily as needed for anxiety 60 Tablet 5 05/27/2023 2:55 PM QA MANAGER 05/26/2023 Active oxyCODONE (ROXICODONE) 5 mg tablet Take 1 (one) tablet by mouth every 6 hours as needed for Pain 4 Tablet 06/03/2023 9:11 AM QA MANAGER 06/02/2023 Active azithromycin (ZITHROMAX) 250 mg tablet TAKE 2 TABLETS BY MOUTH ON DAY 1, THEN TAKE 1 TABLET BY MOUTH DAILY ON DAYS 2-5. 6 Tablet 12/11/2023 5:39 PM CDT 12/11/2023 Active omeprazole (PriLOSEC) 40 mg Capsule, Delayed Release(E.C.) Take 1 Capsule (40 mg) by mouth daily. 90 Capsule 3 05/31/2024 3:36 PM QA MANAGER 05/23/2024 Active buPROPion HCL (WELLBUTRIN XL) 150 [...] Encounters Date Type Department Care Team Description 09/14/2024 External Device Data STL ABSTRACTION Provider, Abstract 09/01/2024 9:59 AM CDT - 09/01/2024 11:59 PM CDT Hospital Encounter [facility] 2nd Fl [address] [place] [phone] Anam Salmon MD Infusion Chair 8, 2nd Floor [facility] Discharge Disposition: Home or Self Care 07/27/2024 10:00 AM CDT - 07/27/2024 11:59 PM CDT Hospital Encounter [facility] 2nd Fl [address] [place] [address] Anam Salmon MD Infusion Chair 9, 2nd Floor [facility] Discharge Disposition: Home or Self Care 07/26/2024 External Device Data STL ABSTRACTION Provider, Abstract 07/26/2024 External Device Data STL ABSTRACTION Provider, Abstract 07/05/2024 Orders Only [facility] [address] [place] [address] David Shea MD 07/02/2024 External Device Data STL ABSTRACTION Provider, Abstract from Last 3 Months Immunizations Immunization Administration [...] 8:15 AM CDT Appointment [facility] 2nd Fl [address] [place] [address] Casi Hughes MD [address] [facility] [address] [place], [place] [phone] Anam Salmon MD [address], [place] [phone] Infusion Chair 9, 2nd Floor [facility] 10/19/2024 9:00 AM CDT Appointment [facility] 2nd Fl [address] [place] [phone] Infusion Chair 9, 2nd Floor [facility] Maintenance Due Date Last Done Comments Pre-Diabetes and Diabetes Screening 1988 HEPATITIS B VACCINES (1 of 3 - 19+ 3-dose series) 10/15/2007 HPV/Cotest (21-29) 05/25/2022 05/25/2017 HPV/Cotest (30-65) 05/25/2022 05/25/2017 INFLUENZA VACCINE (#1) 2023 , 02/24/2020, 03/10/2019, Additional history exists DTAP/TDAP/TD VACCINES (2 - Td or Tdap) 12/04/2023 12/03/2013 COVID-19 Vaccine ( season) 2023 06/06/2021, 08/29/2020, 08/08/2020 CERVICAL CANCER [...] ID:Not on file Type:Not on file Address: [place] [facility] Advance Directives For more information, please contact: [phone] * Full Code (Latest Code Status on [...] 10:47 AM 02/21/2019 2:30 PM Care Teams Mill Recorder Relationship Specialty Start Date End Date David Shea MD [address] [place] [address] PCP - General Family Practice 01/06/18
--- OUTSIDE RECORDS SUMMARY | 2024-09-16 09:25 | XMS_ITS | Encounter Summary ---
Author Organization [facility] Address [address] [facility] [place] [address] Care Team Providers Care Signals Collector/Analyst Name Role Phone David Shea MD Primary Care Provider [phone] Samara Whitfield RN Unavailable Rigo Aden MD Unavailable Henna España MD Unavailable Encounter Details Date Type Department Care Team (Late st Contact Info) Description 11/15/2018 Telephone [facility] [address] [address] Jeet Allan MD [address] [facility] 2L [place] [address] Social History Tobacco Use Types Packs/Day Years Used Date Smoking Tobacco: Never Smokeless Tobacco: Never Alcohol Use Standard Drinks/Week Comments No 0 (1 standard drink = 0.6 oz pur e alcohol) Comments No Sex and Gender Information Value Date Recorded Sex Assigned at Not on file Legal Sex Female 5:19 PM PRODUCER ASSISTANT Gender Identity Not on file Sexual Orientation [...] Description 12/20/2024 11:40 AM CDT Office Visit [facility] - Rheumatology [address] [place] [address] Anam Salmon MD [address] [place] [address] [place] [address] 01/02/2025 12:00 PM CDT Appointment [facility] PFT [address] [place] [address] 01/02/2025 3:30 PM CDT Office Visit [facility] - Pulmonology [address] [place] [address] Lonnie Reveles MD [address] [place] [address] documented as of this encounter Visit Diagnoses Not on filedocumented in this encounter Additional Health Concerns Infection Onset Date Last Indicated Resolved Time COVID-19 Under Investigation 09/13/2019 09/13/2019 09/13/2019 10:29 PM CDT COVID-19 Under Investigation 06/10/2022 06/10/2022 06/10/2022 9:19 PM PRODUCER ASSISTANT COVID-19 Confirmed 06/10/2022 06/10/2022 3 4:35 AM PRODUCER ASSISTANT COVID-19 Under Investigation 12/11/2023 12/11/2023 12/11/2023 11:00 PM CDT COVID-19 Confirmed 12/11/2023 12/11/2023 4 4:33 AM CDT documented as of this encounter Care Teams Signals Collector/Analyst Relationship Specialty Start Date End Date David Shea MD PCP - General 04/03/15 Samara Whitfield, RN Car Rental Deliverer 05/07/18 Rigo Aden MD [address] [place] [address] Rheumatology 10/25/18 Henna España MD [facility] [place] [address] Ophthalmology 03/12/22 documented as of this encounter
--- OUTSIDE RECORDS SUMMARY | 2024-09-16 09:25 | XMS_ITS | Encounter Summary ---
Author Organization [facility] Address [address] [facility] [place] [address] Care Team Providers Care Solar Development Engineer Name Role Phone David Shea MD Primary Care Provider [phone] Samara Whitfield RN Unavailable Rigo Aden MD Unavailable Henna España MD Unavailable Reason for Visit * Reason Onset Date Comments MEDICATION REFILL 02/13/2021 Encounter Details Date Type Department Care Team (Late st Contact Info) Description 02/13/2021 Refill [facility] - General Surgery [address] [facility] [place] [address] Eliecer Odonnell MD [address] [place] [address] MEDICATION REFILL Social History Tobacco Use Types Packs/Day Years Used Date Smoking Tobacco: Never Smokeless Tobacco: Never Alcohol Use Standard Drinks/Week Comments No 0 (1 standard drink = 0.6 oz pur e alcohol) Comments No Sex and Gender Information Value Date Recorded Sex Assigned at Not on file Legal Sex Female 5:19 PM CERTIFIED PROSTHETIST Gender Identity Not on file Sexual Orientation [...] Visit [facility] [address] [place] [address] Anam Salmon MD [address] [place] [address] [place] [address] 01/02/2025 12:00 PM CDT Appointment [facility] PFT [address] [place] [address] 01/02/2025 3:30 PM CDT [facility] [address] [place] [address] Lonnie Reveles MD [address] [place] [address] documented as of this encounter Visit Diagnoses Not on filedocumented in this encounter Additional Health Concerns Infection Onset Date Last Indicated Resolved Time COVID-19 Under Investigation 06/10/2022 06/10/2022 06/10/2022 9:19 PM CERTIFIED PROSTHETIST COVID-19 Confirmed 06/10/2022 06/10/2022 02/25/202 3 4:35 AM CERTIFIED PROSTHETIST COVID-19 Under Investigation 12/11/2023 12/11/2023 12/11/2023 11:00 PM CDT COVID-19 Confirmed 12/11/2023 12/11/2023 4 4:33 AM CDT documented as of this encounter Care Teams Solar Development Engineer Relationship Specialty Start Date End Date David Shea MD PCP - General 04/03/15 Samara Whitfield, RN Big Machine Consultant 05/07/18 Rigo Aden MD [address] [place] [address] Rheumatology 10/25/18 Henna España MD [address] [place] [address] [place] [phone] Ophthalmology 03/12/22 documented as of this encounter
--- OUTSIDE RECORDS SUMMARY | 2024-09-16 09:25 | XMS_ITS | Encounter Summary ---
Author Organization [facility] Address [address] [facility] [place] [address] Care Team Providers Care Services Delivery Driver Name Role Phone David Shea MD Primary Care Provider [phone] Samara Whitfield RN Unavailable [phone] Rigo Aden MD Unavailable Henna España MD Unavailable Reason for Visit * Reason Onset Date Comments Future Appointment 10/22/2020 Follow Up Encounter Details Date Type Department Care Team (Late st Contact Info) Description 10/22/2020 Telephone [facility] [address] [facility] [place] [address] Jeet Allan MD [address] [place] [address] [place] [address] Future Appointment (Follow Up) Social History Tobacco Use Types Packs/Day Years Used Date Smoking Tobacco: Never Smokeless Tobacco: Never Alcohol Use Standard Drinks/Week Comments No 0 (1 standard drink = 0.6 oz pur e alcohol) Comments No Sex and Gender Information Value Date Recorded Sex Assigned at Not on file Legal Sex Female 5:19 PM POULTRY AND FISH BUTCHER Gender Identity Not on file Sexual Orientation [...] Office Visit [facility] Rheumatology [address] [place] [address], [facility] [place] [address] Anam Salmon MD [address] [place] [address] [place] [address] 01/02/2025 12:00 PM CDT Appointment [facility] PFT [address] [place] [address] 01/02/2025 3:30 PM CDT Office Visit [facility] - Pulmonology [address] [place] [address], [place] [address] Lonnie Reveles MD [address] [place] [address] documented as of this encounter Visit Diagnoses Not on filedocumented in this encounter Additional Health Concerns Infection Onset Date Last Indicated Resolved Time COVID-19 Under Investigation 06/10/2022 06/10/2022 06/10/2022 9:19 PM POULTRY AND FISH BUTCHER COVID-19 Confirmed 06/10/2022 06/10/2022 3 4:35 AM POULTRY AND FISH BUTCHER COVID-19 Under Investigation 12/11/2023 12/11/2023 12/11/2023 11:00 PM CDT COVID-19 Confirmed 12/11/2023 12/11/2023 4 4:33 AM CDT documented as of this encounter Care Teams Services Delivery Driver Relationship Specialty Start Date End Date David Shea MD PCP - General 04/03/15 Samara Whitfield RN Quartz Cutter 05/07/18 Rigo Aden MD [address] [place] [phone] Rheumatology 10/25/18 Henna España MD [address] [facility] [place] [address] Ophthalmology 03/12/22 documented as of this encounter
--- OUTSIDE RECORDS SUMMARY | 2024-09-16 09:25 | XMS_ITS | Clinical Summary ---
Author Organization [facility] Address [address] [place] [address] Care Team Providers Care Assembler Final Name Role Phone David Shea MD Primary Care Provider [phone] Samara Whitfield RN Unavailable Rigo Aden MD Unavailable Henna España MD Unavailable [phone] Source Comments [facility],non-owned Affiliates and Associated Physician Practices is amultiple site organization consisting of ambulatory clinics and hospital sitesin [place], [place], [place] and [place]. This disclosure is being madepursuant to the Care Everywhere program and may not contain all information available regarding this patient. Last updated 18.[facility] Allergies Active Allergy Reactions Criticality Noted Date [...] every 8 hours as needed for Insomnia 4 Active magnesium glycinate tablet Take 5 (five) tablets by mouth once daily 3 Active MV-Min-Fe Fum-FA-DHA (/FOLIC ACID+DHA PO) Take 1 tablet by mouth once daily 4 Active Cyanocobalamin (B-12) 1000 MCG Take 1 tablet by mouth once daily Active Cholecalciferol (Vitamin D3) 125 MCG (5000 UT) Take 1 tablet by mouth once daily Active omeprazole (PriLOSEC) 40 MG capsule Take 1 (one) capsule by mouth once daily 90 capsule 3 5 Active aspirin EC (Ecotrin) 81 MG tablet Take 1 (one) tablet by mouth once daily Active buPROPion XL 24hr (Wellbutrin-XL) 150 MG tablet TAKE ONE TABLET BY MOUTH ONCE DAILY 30 tablet 4 09/14/19 25 Discontinu ed(List Clean-Up) escitalopram (Lexapro) 10 MG tablet TAKE ONE TABLET BY MOUTH ONCE DAILY 30 tablet 4 09/14/19 25 Discontinu ed(List Clean-Up) Active Problems Problem Noted Date Diagnosed Date [...] Encounters Date Type Department Care Team Description 09/13/2024 10:40 AM CDT Office Visit [facility] - Rheumatology [address] [place] [phone] Anam Salmon MD ANCA-associated vasculitis (HCC) (Primary Dx); History of DVT (deep vein thrombosis); Therapeutic drug monitoring; 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) ; Long-term current use of rituximab; Hypogammaglobulinemia (HCC) 09/13/2024 Travel 08/12/2024 Telephone [facility] - Rheumatology [address] [place] [phone] Anam Salmon MD LABS ONLY 06/27/2024 4:00 PM TABLE GAMES MANAGER Office Visit [facility] - Pulmonology [address] [place] [phone] Lonnie Reveles MD Granulomatosis with polyangiitis, unspecified whether renal involvement (Primary Dx); Orbital granulomatosis with polyangiitis (GPA); Tracheal stenosis; Dyspnea, unspecified type; Abnormal CT of the chest 06/27/2024 Travel from Last 3 Months Immunizations Immunization Administration Dates Next Due INFLUENZA VACCINE, TRIV. (AF LURIA, FLUZONE TRIVALENT; 6MO+) (IIV3) 02/23/2019 [employer] primary monoval ent 12+ yr 0.3mL Purple [...] Answer Date Recorded Patient Health Questionnaire-2 Score 2 09/13/2024 [facility] - Occupational [...] place to sleep or slept in a long-term (including now)? No 12/12/2023 Comments No Sex and Gender Information Value Date Recorded Sex Assigned at Not on file Legal Sex Female 5:19 PM TABLE GAMES MANAGER Gender Identity Not on file Sexual Orientation Not on file Last Filed Vital Signs Vital Sign Reading Time Taken Comments Blood Pressure 121/88 09/13/2024 10:32 AM CDT Pulse 109 09/13/2024 10:32 AM CDT Temperature 36.6 C (97.9 F) 09/13/2024 10:32 AM CDT Respiratory Rate 17 06/27/2024 3:43 PM TABLE GAMES MANAGER Oxygen Saturation 95% 09/13/2024 10:32 AM CDT Inhaled Oxygen Concentration 21% 12/12/2023 4 :00 AM CDT Weight 123.8 kg (273 lb) 09/13/2024 10:32 AM CDT Height 165.1 cm (5' 5 ) 09/13/2024 10:32 AM CDT Body Mass Index 45.43 09/13/2024 10:32 AM CDT Plan of Treatment Upcoming Encounters Date Type Department Care Team (Late st Contact Info) Description 12/20/2024 11:40 AM CDT Office Visit [facility] - Rheumatology [address] [place] [phone] Anam Salmon MD [address] [place] [address] [place] [phone] 01/02/2025 12:00 PM CDT Appointment [facility] [address] [place] [phone] 01/02/2025 3:30 PM CDT Office Visit [facility] - Pulmonology [address] [place] [phone] Lonnie Reveles MD [address] [place] [address] Health Maintenance Due Date Last Done Comments [...] 02/24/2020, Additional history exists PAP SMEAR 01/29/2026 01/29/2023, 01/29/2023 HIV SCREENING Completed 12/09/2017 HEPATITIS C [...] this topic Medical Devices Implanted Type Area Physician Scribe Device Identifier Shelf Expiration Date Model / Serial / Lot Set Intbt .016in .025in Crwfrd Nose - [id number] Implanted:Qty: 1 on 05/05/2022 by Henna España MD at [facility] [employer] 12/25/2025 [id number] / [id number] / [id number] Procedures Procedure Name Priority Date/Time Associated Diagnosis Comments HEPATITIS C AB SCREEN RFLX NAAT QUANT Routine 01/19/2023 10:43 AM CDT Need for hepatitis C screening test HIV-1 HIV-2 ANTIGEN/ANTIBODY STAT 12/09/2017 4:51 PM CDT from Last 3 Months or Most Recently Relevant to Health Maintenance Results * HEPATITIS C AB SCREEN RFLX NAAT QUANT (01/19/2023 10:43 AM CDT) Hepatitis C Antibody Non-react nash Non-reac tive 01/19/2023 12:36 PM CDT [facility] Comment:Hepatitis C Antibody screen indicates no serologic [...] 10:43 AM CDT 01/19/2023 11:10 AM CDT us Anam Salmon MD LAB - CHEMISTRY ORDERABLES Fi nal Result [facility] [address] [place] [phone], [facility] [phone] * HIV-1 HIV-2 ANTIGEN/ANTIBODY (12/09/2017 4:51 PM CDT) HIV Antigen/Antibod y 1 & 2 Non-reacti ve Non-react nash 12/09/2017 6:13 PM CDT [facility] Comment: Neither HIV-1 p24 Antigen nor HIV-1/HIV-2 Antibodies are detected. Blood BLOOD SPECIMEN / Unknown Venipuncture / Unknown 12/09/2017 4:51 PM CDT 12/09/2017 4:58 PM CDT us Belme Matta MD LAB - HEMATOLOGY ORDERABLES Final Result [facility] [address] [place] [address], [facility] [phone] from Last 3 Months or Most Recently Relevant to Health Maintenance Insurance [facility] Advance Directives * Full Code (Latest Code Status on File) Date Activated Date Inactivated Comments 12/12/2023 2:36 AM 12/16/2023 4:16 PM * Full Code Date Activated Date Inactivated Comments 05/05/2022 4:03 PM 05/05/2022 8:09 PM * Full Code Date Activated Date Inactivated Comments 10/18/2020 4:30 PM 10/19/2020 6:57 PM * Full Code Date Activated Date Inactivated Comments 01/25/2020 12:21 PM 01/26/2020 6:40 AM * Full Code Date Activated Date Inactivated Comments 11/07/2019 1:12 PM 11/08/2019 12:14 AM Care Teams Assembler Final Relationship Specialty Start Date End Date David Shea MD PCP - General 04/03/15 Samara Whitfield RN Band Sawing Machine Operator 05/07/18 Rigo Aden MD [address] [place] [phone] Rheumatology 10/25/18 Henna España MD [address] [facility] [place] [phone] Ophthalmology 03/12/22
--- OUTSIDE RECORDS SUMMARY | 2024-09-16 09:25 | XMS_ITS | Encounter Summary ---
Author Organization [facility] Address [address] [facility] [address] [place] [address] Care Team Providers Care Processor Helper Name Role Phone David Shea MD Primary Care Provider [phone] Samara Whitfield RN Unavailable Rigo Aden MD Unavailable Henna España MD Unavailable Encounter Details Date Type Department Care Team (Late st Contact Info) Description 02/16/2020 Telephone [facility] [address] [place] [address] Anam Salmon MD [address] [place] [phone] Social History Tobacco Use Types Packs/Day Years Used Date Smoking Tobacco: Never Smokeless Tobacco: Never Alcohol Use Standard Drinks/Week Comments No 0 (1 standard drink = 0.6 oz pur e alcohol) once or twice a year Comments No Sex and Gender Information Value Date Recorded Sex Assigned at Not on file Legal Sex Female 5:19 PM HEARING AID ASSISTANT Gender Identity Not on file Sexual [...] . Please have new orders sent/faxed to [facility] Make sure they are sent, I have been having challenges with pt. Arriving at [facility] and they weren't able to see their orders. Thanks. Patient Call Back number: [phone] documented in this encounter Plan of Treatment Upcoming Encounters Date Type Department Care Team (Late st Contact Info) Description 12/20/2024 11:40 AM CDT Office Visit [facility] - Rheumatology [address] [place] [address], [place] [phone] Anam Salmon MD [address] [place] [address] [place] [phone] 01/02/2025 12:00 PM CDT Appointment [facility] [address] [place] [phone] 01/02/2025 3:30 PM CDT Office Visit [facility] - Pulmonology [address] [facility], [place] [phone] Lonnie Reveles MD [address] [place] [address] documented as of this encounter Visit Diagnoses Not on filedocumented in this encounter Additional Health Concerns Infection Onset Date Last Indicated Resolved Time COVID-19 Under Investigation 06/10/2022 06/10/2022 06/10/2022 9:19 PM HEARING AID ASSISTANT COVID-19 Confirmed 06/10/2022 06/10/2022 3 4:35 AM HEARING AID ASSISTANT COVID-19 Under Investigation 12/11/2023 12/11/2023 12/11/2023 11:00 PM CDT COVID-19 Confirmed 12/11/2023 12/11/2023 4 4:33 AM CDT documented as of this encounter Care Teams Processor Helper Relationship Specialty Start Date End Date David Shea MD PCP - General 04/03/15 Samara Whitfield RN Bridge Repairer 05/07/18 Rigo Aden MD [address] [place] [phone] Rheumatology 10/25/18 Henna España MD [address] [place] [address] [place] [phone] Ophthalmology 03/12/22 documented as of this encounter
--- OUTSIDE RECORDS SUMMARY | 2024-09-16 09:25 | XMS_ITS | Data Portability ---
Author Organization [facility] Address [address] [place] [address] Care Team Providers Care Clinical Supervisor Name Role Phone REMEDIOS LUNA Primary Care Provider Assessment Encounter Date Assessment Date Assessment LastModified by Organization Details LastModified Time 01/29/2023 01/29/2023 Annual gynecological exam performed. Patient will come back in a year unless there are new symptoms. [email or web address] Not available 01/29/2023 11:35:52 02/22/2024 02/22/2024 Annual gynecological exam performed. Patient will come back in a year unless there are new symptoms. Not available 02/04/2024 11:38:59 Plan of Treatment Reminders Order Date Submit Date Provider Last Modified By Organization Details Last Modified Time Details Appointments None recorded. Lab anti-daniel erian hormone (amh), serum 025 025 [facility] (Lab), [address], [place], [address], 5 18:05:57 FSH (follicle -stimulat ing hormone), serum 025 025 [facility] (Lab), [address], [place], [address], 5 18:05:59 estradiol , serum 025 025 [facility] (Lab), [address] [place], [address], 5 18:05:58 TSH, serum, reflex free T4 025 025 [facility] (Lab), [address] [place], [address], 5 04:07:28 HbA1c (hemoglob in A1c), blood 025 025 [facility] (Lab), [address] [place], [address], 5 18:05:59 vitamin D, 25-hydrox y, total, serum 025 025 [facility] (Lab), [address], [place], [address], 5 04:07:28 prolactin , serum 025 025 [facility] (Lab), [address] [place], [address], 5 18:05:58 lh (luteiniz ing hormone), serum 025 025 [facility] (Lab), [address] [place], [address], 5 18:05:58 17-hydrox yprogestROCAEL martinez, serum 025 025 [facility] (Lab), [address], [place], [address], 5 18:05:59 Referral None recorded. Procedures None recorded. Surgeries None recorded. Imaging None recorded. Medication Orders None recorded. Patient TargetsNo targets recorded. Patient InstructionsNo instructions [...] Repor t Case: [id number] Autho siddharthashabana karina Provi javier: Yoselyn Nelson, PETER Meza cted: 01/29 1317 Order ing Locat ion: [place] [facility] Recei byron: 01/30 0113 First Scree n: Chari Vela , CT Speci men: Scree gordon Pap - Image d, Cervi x STATE MENT OF ADEQU ACY: Satis facto ry for evalu ation Trans forma tion zone compo nent prese nt FINAL DIAGN OSIS: Negat nash for Intra epith elial Leskary n or Ej savage (NIL) . Elect tea gannon d by Chari Vela , CT on [...] is recom joseph d, as clini candie burks nted. Not Available [facility] (Lab) [address], [place], [address], 02/01/2023 11:36:49 05/19/1905/19/2024 ANTIM ULLER AI HORMO NE (AMH) anti-mulleri an hormone (amh) [...] actur es canno t be used inter [facility]. Not Available [facility] (Lab) [address], [place], [address], 05/24/2024 18:05:57 05/19/1905/19/2024 ESTRA DIOL estradiol 92.2 pg/mL This assay was perfo rmed using [employer] ratio n reage nts and test kits. Value s obtai haley with other assay metho ds or kits canno t be used inter [facility] . Femal e Estra diol Range s: Folli cular phase 12.4- 233 pg/mL Ovula tion phase 41.0- 398 pg/mL Lutea l phase 22.3- 341 pg/mL Postm enopa usal <5-13 8 pg/mL Healt hy Pregn ant Women 1st Trime ster 154-3 243 pg/mL 2nd Trime ster 1561- 23651 pg/mL 3rd Trime ster 8525- >3000 0 pg/mL Not Available [facility] (Lab) [address] [place], [address], 05/24/2024 18:05:58 05/19/1905/19/2024 PROLA CTIN prolactin, total 11.70 NG/mL 4.79-2 3.30 This assay was perfo rmed using [employer] reage nts and test kits. Value s obtai haley with other assay metho ds or kits canno t be used inter [facility] . Not Available [facility] (Lab) [address], [place], [address], 05/24/2024 18:05:58 05/19/1905/19/2024 LH (LUTE NIZIN G HORMO NE) LH 4.1 mIU/m L This assay was perfo rmed using [employer] reage nts and test kits. Value s obtai haley with other assay metho ds or kits canno t be used [facility] . Femal es Mid-F ollic ular: 2.4-1 2.6 mIU/m L Mid-C ycle: 14.0- 95.6 mIU/m L Mid-L uteal : 1.0-1 1.4 mIU/m L Postm enopa use: 7.7-5 8.5 mIU/m L Not Available [facility] (Lab) [address] [place], [address], 05/24/2024 18:05:58 05/19/1905/19/2024 FSH FSH 3.8 mIU/m L This assay [...] use: 25.8- 134.8 mIU/m L Not Available [facility] (Lab) [address], [place], [address], 05/24/2024 18:05:59 05/19/19 25 05/19/2024 HEMOG LOBIN [...] >8.0% Actio n sugge sted Not Available [facility] (Lab) [address], [place], [address], 05/24/2024 18:05:59 05/19/19 25 05/19/2024 17-OH PROGE [...] cteri stics have been deter mined by [employer]. It has not been clear ed or appro byron by FDA. This assay has been valid ated pursu ant to the CLIA regul ation s and is used for clini tomasz purpo ses. Perfo rming Organ izati on Infor matio n: Site ID: EZ Name: [facility]/Dejon hols [facility] miguel Anders tranluiz , Addre ss: [id number] [place] [address] [facility] [place] tor: Nadya matos MD,Ph D,GLENDY Not Available [facility] (Lab) [address], [place], [address], 05/24/2024 18:05:59 Result Notes None recorded. Procedures Surgical History Date Name Laterality Status Provider Name and Address Organization Details Recorded Time 3 Date of Last Pap Smear completed Haleigh Cheatham [facility] 02/04/2024 11:39:40 9 amputation of toe completed [facility] 02/02/2023 13:35:27 9 endoscopy of trachea completed Sammiejimenez Miller [facility] 02/02/2023 13:36:31 tonsilectomy/a denoids completed Sandi Perez [facility] 01/29/2023 11:44:05 Imaging Results None recorded. Procedure Notes None recorded. Medical Equipment None Reported. Allergies Allergen ID Allergen Name Allergen Category Reaction Reaction Severity Criticality Documentation Date Start Date Code Code System Note Provider Name and Address Organization Details Recorded Time nifedipin e medicatio n rash severe Not available 01/29/2023 7417 RxNorm Sandi Perez [facility] 3 11:36:20 71282 Compazine medicatio n lighthead edness severe Not available 01/29/202342748 6 RxNorm Sandi Perez [facility] [place] - [facility] 3 11:36:25 Medications Name Sig [...] Prescrib ed Elsewher e: Yes Loca tion: [facility] odify By: lisa allen DateTime : 07/11/19 [...] Prescrib ed Elsewher e: No Locat ion: [facility] odify By: [email or web address] trick En counter DateTime : 07/15/19 14 01:39:56 [...] Elsewher e: Yes Loca tion: [facility] odify By: lisa Luu r DateTime : 07/11/19 16 01:30:00 PM Not Available Not Available Not Available prednisol one 5 mg/5 mL oral solution take 5 millilit er by oral route every day with food 05/12 completed Prescrib ed Elsewher e: Yes Loca tion: [facility] odify By: lisa Luu r DateTime : 07/11/19 16 01:30:00 PM Not Available Not Available Not Available ranitidin e 150 mg capsule take 1 capsule by oral route 2 times every day 05/12 completed Prescrib ed Elsewher e: Yes [facility] By: lisa Luu r DateTime : 07/11/19 16 01:30:00 [...] mcg (50,000 unit) capsule take 1 capsule ([id number] ITS) by oral route every week 06/22 completed Prescrib ed Elsewher e: No Locat ion: [facility] odify By: melinda addison DateTime : 11/15/19 [...] Prescrib ed Elsewher e: Yes [facility] By: francine Luu r DateTime : 07/11/19 16 01:30:00 PM Not Available Not Available Not Available Calcium-5 00 500 mg (as calcium carbonate 1,250 mg) tablet active Prescrib ed Elsewher e: Yes [facility] By: francine Luu r DateTime : [...] Prescrib ed Elsewher e: No Locat ion: [facility]ify By: jdarvin allen DateTime : 08/18/19 18 02:15:00 PM Not Available Not Available Not Available Lexapro 5 mg tablet take 2 tablet by oral route every day 01/29 completed Prescrib ed Elsewher e: Yes Loca tion: [facility] odify By: lisa Luu r DateTime : 05/12/19 10:15:00 AM Not Available Not Available Not Available Ortho-Cyc millie (28) 0.25 mg-35 mcg tablet take 1 tablet by oral route every day 06/07 completed Prescrib ed Elsewher e: No Locat ion: [facility] odify By: nina addison DateTime : 01/13/20 [...] Elsewher e: Yes Loca tion: [facility] odify By: lisa Luu r DateTime : 05/12/19 10:15:00 AM Not Available Not Available Not Available Prilosec 2.5 mg oral suspensio n,delayed release 01/29 completed Prescrib ed Elsewher e: Yes Loca tion: [facility] odify By: lisa Luu r DateTime : 05/12/19 10:15:00 AM Not Available Not Available Not Available magnesium glycinate 02/03 completed Not Available Not Available Not Available Antibioti c(neomy-b acit-poly m) 3.5 mg-400 unit-5,00 0 unit/gram top oint 11/11 completed Prescrib ed Elsewher e: Yes Loca tion: [facility] odify By: melinda addison DateTime : 07/23/19 12 01:00:00 PM Not Available Not Available Not Available B12 02/21 completed Not Available Not Available Not Available Adolfo del valleo DHA 29 mg-1 mg-400 mg oral pack take 2 by Oral route every day for 30 days 07/06 completed Prescrib ed Elsewher e: No Locat ion: [facility] odify By: shaquille carvajal DateTime : 06/07/19 14 10:30:00 AM Not Available Not Available Not Available Eliquis 5 mg tablet TAKE 1 TABLET BY MOUTH TWICE DAILY 02/21 completed Not Available Not Available Not Available Eliquis 2.5 mg tablet take 1 tablet by oral route 2 times every day 02/03 completed Prescrib ed Elsewher e: Yes Loca tion: [facility] odify By: lisa allen DateTime : 05/12/19 10:15:00 AM Not Available Not Available Not Available Eliquis 02/03 completed Not Available Not Available Not Available Acid Route Sales Delivery Driver (omeprazo le) 02/03 completed Not Available Not Available Not Available Vitals Date Recorded Body height Body mass index (BMI) Body weight Systolic blood pressure Diastolic blood pressure Provider Name and Address Organization Details Last Updated DateTime 01/29/2023 167.64 cm 42.1 kg/m2 140069.6 1 g 120 mm[Hg] 80 mm[Hg] Sandi Perez [facility] 3 11:36:09 Date Recorded Body height Body mass index (BMI) Body weight Systolic blood pressure Diastolic blood pressure Provider Name and Address Organization Details Last Updated DateTime 02/22/2024 167.64 cm 41.3 kg/m2 472623.6 5 g 121 mm[Hg] 88 mm[Hg] Haleigh Chaparrita [facility] 4 12:34:51 Date Recorded Body height Body mass index (BMI) Body weight Systolic blood pressure Diastolic blood pressure Provider Name and Address Organization Details Last Updated DateTime 05/18/2024 167.64 cm 42.8 kg/m2 945151.9 8 g 117 mm[Hg] 84 mm[Hg] Lilian Campbell [facility] 5 12:29:57 Social History Question Answer Notes LastModified by Organizat ion Details LastModified Time Tobacco Smoking Status Never Smoker Sandi Perez [facility] 01/29/2023 11:44:19 Do You Have An Advance Directive? No [email or web address] Information n ot available 02/22/2024 Are You Blind Or Do You Have Difficulty Seeing? No [email or web address] Information n ot available 02/02/2023 What Is Your Level Of Caffeine Consumption? Moderate [email or web address] Information not available 02/22/2024 How Much Tobacco Do You Chew? None [email or web address] Information not available 02/04/2024 In The 14 Days Before Symptom Onset, Have You Had Close Contact With A Laboratory-confirm ed COVID-19 While That Case Was Ill? No [email or web address] Information n ot available 02/02/2023 In The 14 Days Before Symptom Onset, Have You Had Close Contact With A Person Who Is Under Investigation For COVID-19 While That Person Was Ill? No [email or web address] Information not available 02/02/2023 Have You Been To An Area Known To Be High Risk For COVID-19? No [email or web address] Information not available 02/02/2023 Are You Deaf Or Do You Have Serious Difficulty Hearing? No [email or web address] Information not available 02/02/2023 What Type Of Diet Are You Following? REGULAR [email or web address] Information n ot available 02/02/2023 What Is The Highest Grade Or Level Of School You Have Completed Or The Highest Degree You Have Received? [id number] [email or web address] Information not available 02/04/2024 Are There Any Guns Present In Your Home? Yes [email or web address] Information not available 02/04/2024 Do You Use Protection During Sex? No [email or web address] Information not available 02/04/2024 Do You Use Your Seat Belt Or Car Seat Routinely? Yes [email or web address] Information not available 02/02/2023 Do You Have Smoke And Carbon Monoxide Detectors In Your Home? Yes [email or web address] Information not available 02/02/2023 How Much Tobacco Do You Smoke? No [email or web address] Information not available 02/04/2024 Do You Use Sunscreen Routinely? No [email or web address] Information not available 02/04/2024 Has Tobacco Cessation Counseling Been Provided? No Information not available 01/29/2023 Have You Used IV Drugs? No Information not available 02/04/2024 Do You Have Difficulty Walking Or Climbing Stairs? No [email or web address] Information not available 02/02/2023 Sex: Unknown Functional [...] 01/29/2023 Are you able to walk? YESWOREST [email or web address] Information not available 02/02/2023 Are you able to care for yourself? 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 No [email or web address] Information not available 02/02/2023 What is your exercise level? Occasional [email or web address] Information not available 02/02/2023 Mental Status Question Answer Note LastModified by Organization D etails LastModified Time Do you feel stressed (tense, restless, nervous, or anxious, or unable to sleep at night)? [id number] [email or web address] Information not available 05/18/2024 Family History Relationship Description Onset Age of this Age Resolved Age Notes LastModified by Organization Details LastModified Time Maternal Grandmother Malignant tumor of breast [email or web address] Not available 02/02 13:34:33 Notes:Maternal grandmother: Cancer, [...] SNOMED-CT Code Diagnosis ICD10 Code Diagnosis Note [id number] RAMESH Zamorano [place] [address] [address] 01/29/2023 11:22:28 01/29/2023 12:13:56 Gynecologic examination 78419952 Z01.419 WWEBC - condomsno hx of abnormal [...] paper copy of today's plan if desired. Reproducti ve care management [id number] Z31.9 [id number] Noel Medina MD [place] [address] [address] 02/22/2024 12:19:47 02/22/2024 13:01:09 Gynecologic examination 64043230 Z01.419 Annual gynecologi tomasz exam performed. Patient will come back in a year unless there are new symptoms. Suggest Calcium with Vitamin D if not eating in diet. Patient advised to get annual flu shot. Recommend yearly physicals and perform monthly breast exams. Genetic testing is available for patients with family history of cancer. Engage in safe sexual practices, use condoms. Encouraged to have daily exercise. Avoid tobacco and illicit drugs, moderation of alcohol. If BMI greater than 25 dietary consult advised. If you have any questions please call or email. mammogram- n/a colon cancer screening - n/a DEXA scan- n/a Pap smear- UTD (2022 - NILM, HPV neg), will repeat in 2-3 years per ASCCP guidelines . laboratory evaluation - PCP STI testing -declined Cleared by MFMiles and herbert gist to TTC, pt to continue taking daily PNV and tracking cycles/ovu lation. [id number] MARIS GALLEGO MD [place] [address] [address] 05/18/2024 12:21:41 05/19/2024 05:39:35 Polycystic ovary syndrome 069190247 E28.2 - discussed hx of PCOS, lack of ovulation seen on fertility tracker (no LH surge)- currently day 20 of cycle- will confirm ovulation presence with CD21 progestero ne, as well as other hormone labs for infertilit y- discussed if anovulatio n confirmed, could consider ovulation induction with letrozole or clomid if desired; would need semen analysis prior to starting.- patient voices understand ing, would like to evaluate with labs prior to further testing- will follow up with results as available Health Concerns Section Related Observation LastModified by Organization Detai ls LastModified Time None Recorded Concern Status LastModified by Organization Details LastModified Time None Recorded Advance Directives Directive N: Payers Encounter Date Sequence Insurance Name Policy Number Policy Donald Covered Member ID Donald Member ID Guarantor Name 01/29/2023 1 [employer] [id number] David Tony Karissa [id number] 02/22/2024 1 [employer] [id number] David Tony Karissa [id number] Myrna Marieshan 05/18/2024 1 R [id number] [facility] [id number] [facility] Notes Date Note Type Note Provider Name and Address Organization Details Recorded Time 3 text/html Annual GYNReported bypatient.Menstrual cycle:Normal menses Urinary symptoms:No hematuria; No incontinence Vulva:No genital lesion Vagina:Normal vaginal discharge Breast:No breast pain; No breast lump; No nipple discharge Current Contraception:Condoms Sexual complaints:No sexual complaints; No pain during intercourse; Normal libido Menopausal Symptoms:No menopausal symptoms; Normal vaginal lubrication Psychological symptoms:No depression; No anxiety; No PMDD Preventive measures:Encourage self breast examination; Encourage regular exercise; Encourage no tobacco use; Encourage regular mammograms starting age 40Notes:no hx of abnormal papslast pap 2019 - normal per ptcomplex medical hx:autoimmune vasculitis/GPA, hx of DVT/PE, tracheal stenosis requiring tracheal dilation every 6 monthsconsidering future fertility RAMESH Zamorano [address], [place], [address], [place] [facility] 01/29/2023 12:11:24 4 text/html Annual GYNReported bypatient.History:no gynecologic complaints; actively trying to conceive Menstrual cycle:Normal menses Urinary symptoms:No hematuria; No incontinence Vulva:No genital lesion Vagina:Normal vaginal discharge Breast:No breast pain; No breast lump; No nipple discharge Current Contraception: control not practiced (TTC) Sexual complaints:No sexual complaints; No pain during intercourse; Normal libido Menopausal Symptoms:No menopausal symptoms; Normal vaginal lubrication Psychological symptoms:No depression; No anxiety; No PMDD Preventive measures:Encourage self breast examination; Encourage regular exercise; Encourage no tobacco use; Encourage regular mammograms starting age 40 Patient presents for annual well woman exam. Patient denies concerns today.Patient trying to conceive x 2 months. Patient taking PNV daily. 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 YASMEEN DURAN NP [address], [place], [address], [facility] 02/22/2024 13:00:39 5 text/html Presents today for discussion of infertility. She and her partner have been actively been trying to conceive 5-6 months. She has been using the [facility] [employer] ovulation tracker. She had a LH rise in December and then had a rise on CD17 this cycle, however did not have a rise in between. The patient reports she has regular menstrual periods. She denies a history of extremely painful periods. Previous history includes: 1 daughter in 2013. Took 9 months to conceive. Her current partner is the father of her previous children. He denies a history of childhood illnesses or cancers. He denies family history of autism/MR and infertility. He has not completed a semen analysis Patient has hx of autoimmune vasculitis, taking retuxin; not on anticoagulation. MARIS GALLEGO MD [address], [place], [address], [facility] 05/18/2024 22:51:15 OBGyn Episode Ob Episode Information Episode Created Date Number of Fetuses Patient Bloodtype Patient rh Status Prepregnancy Weight lbs Domestic Partner Domestic Partner Phone Father Name Pickle Cutter Status 01/30/20 23 1 CLOSED Fetus Data First Name Last Name Admitted to NICU Weight (g) Sex Living Outcome Pediatric Complications Fetus ID Race Codes Race Delivery Type 3175.14 4 F Full Term [id number] Vaginal Delivery Adryan Calculation Initial Adryan Date Initial Exam Date Initial Exam Provider Initial Ultrasound Date Last Menstrual Period Date Ultra Sound Weeks Gestation 0 Eighteen To Twenty Week Adryan Update Ultra Sound Date Fundal Height At Umbil Quickening Date Ultra Sound Latest Weeks Gestation Final Adryan Confirmed By Final Adryan Confirmed Date Final Adryan Date Ultra Sound Latest Days Gestation 0 0 Menstrual History Last Menstrual Date Menses Monthly On Bcp Conception Prior Menses Frequency Hcg Plus Date Menarche Onset Age Delivery Information Delivery Date Delivery Type Labor Anesthesia Weeks Gestation Incision Type Labor Labor Length Hrs Delivered By Post Complications Tubal Sterilization Discharge Date Comments 4 40 Discharge Information Feeding Method Contraceptive Method Maternal HG B and HCT Levels
[2024-09-16 10:27] LABS: Beta HCG Quantitative < 2.39 mIU/ML
== END 2024-09-16 09:23 | disposition home or self-care (01) ==
PROVIDERS: PCP Family Medicine; Visit Provider Advanced Practice Midwife
DX: O03.9 Complete or unspecified spontaneous abortion without complication (principal)
CPT/HCPCS: 36415; 84702